=== PATIENT | male | born 1990 | race Caucasian/White ===

== ENCOUNTER 2022-12-24 17:59 | Emergency (ER) | payer SELFPAY ==
[2022-12-24 18:16] VITALS: BP 146/81; PULSE 93; RESP 18; TEMP 36.6; O2SAT 99; BMI 33.9
--- NOTE | 2022-12-24 23:22 | ED.GENADULT ---
HPI - General Adult General Chief complaint: Eye Problems Stated complaint: eye problem / work inj Time Seen by Provider: 12/24/22 23:04 Source: patient, family, RN notes reviewed and old records reviewed Mode of arrival: ambulatory Limitations: no limitations History of Present Illness HPI narrative: 32-year-old male presents for evaluation of right eye swelling. Patient denies any specific injury to his right eye. He reports that 2 days ago he noticed some swelling to his upper eyelid He states since then his eye has been itchy in the morning he has been scratching at He has mild discomfort to the area. He denies any blurry vision He has no other complaints or concerns at this time Related Data Previous Rx's Medication Instructions Recorded erythromycin 5 mg/gram (0.5 %) eye 0.5 inch ophthalmic (eye) TID 5 12/24/22 ointment days #3.5 grams Allergies Allergy/AdvReac Type Severity Reaction Status Date / Time No Known Allergies Allergy Verified 12/24/22 18:16 Review of Systems Constitutional: Constitutional: Denies chills and Denies fever(s) Eyes: Eyes: Denies blurry vision, Denies decreased night vision, Reports irritation, Reports itchy eyes, Denies loss of peripheral vision, Denies loss of vision, Reports eye pain, Denies spots in vision and Denies tunnel vision Neurologic: Denies loss of vision Allergic/Immunologic: Allergic/Immunologic: Reports itchy eyes PMFSH Social History Social History Smoked in Last 30 Days: Yes Use of substances other than those prescribed or required for medical reasons: No Advance Directives: No Advance Directives Information Provided: No Physical Exam ED Vital Signs: Vital Signs - 24 hr 12/24/22 18:16 Temperature 97.9 F Pulse Rate 93 Respiratory Rate 18 Blood Pressure 146/81 H Pulse Oximetry 99 Oxygen Delivery Method Room Air BMI result Body Mass Index 33.9 Const General: healthy appearing, comfortable, no acute distress, alert and awake Nutritional Appearance: well nourished Orientation/consciousness: patient oriented x3 HENMT Head: Yes normocephalic and Yes atraumatic Eyes Other: Patient has mild edema to the right upper eyelid, no significant erythema. Nontender to palpation. No fluctuance or drainage. There is very mild conjunctival injection ulcerations. Extraocular motions are intact in all cardinal directions without difficulty. Positive fluorescein uptake over the mid pupil of the right eye. No obvious foreign body on exam Neck Neck: Yes full ROM Resp Effort & Inspection: normal respiratory effort, able to speak in complete sentences and not labored Skin General skin exam: elasticity normal Neuro General: patient oriented x3 Cranial nerves: Yes Bilaterally intact EOM present Cognition (Neuro): normal cognition Extrem Other: Moving all extremities well without any obvious deformities Medications Administered Discontinued Medications Generic Name Dose Route Start Last Admin Trade Name Freq PRN Reason Stop Dose Admin Erythromycin 1 cm 12/24/22 23:22 12/24/22 23:27 Erythromycin Base 0.5% Oph Oin 1 Gm Tube EYE-RIGHT 12/24/22 23:23 1 cm ONCE ONE Administration Fluorescein Sodium 1 strip 12/24/22 22:45 12/24/22 23:27 Fluorescein Sodium Strip EYE-RIGHT 12/24/22 22:46 Not Given ONCE ONE Tetracaine HCl 1 drop 12/24/22 22:45 12/24/22 23:27 Tetracaine Hcl/Pf 0.5% Oph Sherita 4 Ml Drops EYE-RIGHT 12/24/22 22:46 Not Given ONCE ONE Medical Decision Making Medical Decision Making MDM Narrative: 32-year-old male presents for evaluation of a high swelling and mild pain. He appears to have a mild hordeolum/stye. He does have a small corneal abrasion exam. I have a low suspicion for foreign body or iritis. He has no blurry vision. Low suspicion for glaucoma as the patient has very mild pain and no excessive tearing. He likely cause a small corneal abrasion while itching his eyes due to the stye. Differential Diagnosis Differential Diagnoses: The differential diagnosis associated with the presentation includes Stye hordeolum corneal abrasion iritis foreign body Discharge Plan Discharge Clinical Impression: Corneal abrasion Patient Disposition: Home, Self-Care Instructions: Corneal Abrasion (ED) Additional Instructions: It appears that you had a simple stye to the right upper eyelid You likely caused a corneal abrasion by rubbing or scratching at your eye Use the erythromycin ointment 3 times daily for 5 days Apply warm compresses every 2 hours for 10 minutes to the right eye Follow-up with ophthalmology for symptoms do not improve. Prescriptions: New erythromycin 5 mg/gram (0.5 %) ointment 0.5 inch ophthalmic (eye) TID 5 Days Qty: 3.5 0RF Referrals: Esau Smith [Physician] - (right eye corneal abrasion) Interventions: ED Discharge Assessment Last Done: 12/24/22 23:32 Discharge Date/Time: 12/24/22 23:33
[2022-12-24] MEDS: Erythromycin Base 0.5% Oph Oin 1 GM TUBE 1 CM EYE-RIGHT (23:27)
== END 2022-12-24 23:33 | disposition home or self-care (01) ==
PROVIDERS: Emergency Provider Emergency Medicine
DX: S05.01XA Injury of conjunctiva and corneal abrasion without foreign body, right eye, initial encounter (principal); X58.XXXA Exposure to other specified factors, initial encounter; Y93.9 Activity, unspecified; Y92.9 Unspecified place or not applicable; Y99.9 Unspecified external cause status
CPT/HCPCS: 99283; 99284

== ENCOUNTER 2024-09-09 13:57 | Inpatient (IN) | payer MEDICAID, SELFPAY ==
--- NOTE | ~2024-09-09 | CT_ITS ---
CLINICAL HISTORY: upper abdominal pain CT abdomen and pelvis with contrast Comparison: None provided Findings: Lung bases clear. No acute bony abnormalities. Right lower quadrant inflammatory stranding. This involves multiple small bowel loops. This includes the adjacent terminal ileum. Small bowel wall thickening in right lower quadrant. Findings likely represent inflammatory bowel disease. The appendix is not definitively identified. Appendicitis would not be excludable. Findings involve the superior right bladder wall. 1.2 cm fluid collection along right superior bladder wall. Finding may represent a small abscess. No other fluid collection or free air is identified. Liver and spleen within normal limits. Pancreas and adrenal glands unremarkable. Gallbladder is within normal limits. No significant focal renal abnormalities. No renal stones or hydronephrosis. Abdominal aorta is normal in caliber. No free fluid or adenopathy in the pelvis. No diverticulitis. Impression: Right lower quadrant small bowel wall thickening with diffuse stranding Probable inflammatory bowel disease as above Probable 1.2 cm abscess along superior bladder wall Right superior bladder wall thickening indicates bladder involvement Note the appendix is not identified This document has been electronically signed by: Chacorta Damon MD on 09/09/2024 19:58:31
[2024-09-09 14:25] VITALS: BP 136/69; PULSE 65; RESP 16; TEMP 36.6; O2SAT 100; BMI 29.5
--- NOTE | 2024-09-09 14:26 | ED_ITS ---
HPI - General Adult General Chief complaint: Abdominal Pain Stated complaint: stomach pain, vomiting Time Seen by Provider: 09/09/24 17:04 Source: patient, RN notes reviewed and old records reviewed Mode of arrival: ambulatory Limitations: no limitations History of Present Illness ED Provider: Eladio JOHNSON narrative: 34-year-old male presents for evaluation of abdominal pain. Patient reported abdominal pain starting this morning. His pain is mostly left upper abdomen but radiates to the right upper abdomen. Symptoms started this afternoon while at work, not after eating. 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 He vomited on 1 occasion denies any black or bloody stool or diarrhea. Denies any previous abdominal surgeries. He rates his pain as 11/15 Related Data Previous Rx's ?Medication ?Instructions ?Recorded erythromycin 5 mg/gram (0.5 %) eye 0.5 inch ophthalmic (eye) TID 5 12/24/22 ointment days #3.5 grams Allergies Allergy/AdvReac Type Severity Reaction Status Date / Time No Known Allergies Allergy Verified 09/09/24 14:29 Review of Systems 2 Constitutional: Constitutional: Denies body ache(s), Denies chills and Denies fever(s) Eyes: Eyes: Denies blurry vision ENT: Denies vertigo and Denies dizziness Cardiovascular: Cardiovascular: Denies chest pain Gastrointestinal: Gastrointestinal: Reports abdominal pain, Denies melena, Denies hematochezia, Reports nausea and Reports vomiting Musculoskeletal: Musculoskeletal: Denies back pain Integumentary/Breasts: Skin/Breast: Denies rash Neurologic: Denies vertigo and Denies dizziness Psychiatric: Psychiatric: Denies anxiety [facility] Social History Social History Alcohol intake: current Alcohol intake frequency: holidays/special occasions only Smoked in Last 30 Days: No Use of substances other than those prescribed or required for medical reasons: No Advance Directives: No Advance Directives Information Provided: No Physical Exam ED Vital Signs: Vital Signs - 24 hr 09/09/24 14:25 09/09/24 16:42 09/09/24 20:59 Temperature 97.9 F 97.8 F Pulse Rate 65 70 78 Respiratory Rate 16 16 18 Blood Pressure 136/69 127/74 108/72 Pulse Oximetry 100 98 98 Oxygen Delivery Method Room Air Room Air Room Air BMI result Body Mass Index 29.5 Const General: healthy appearing, comfortable, no acute distress, alert and awake Nutritional Appearance: well nourished Orientation/consciousness: patient oriented x3 HENMT Head: Yes normocephalic and Yes atraumatic Eyes Eyelids: Yes eyelids normal Conjunctivae: conjunctivae normal Sclerae: sclerae normal Corneas: corneas normal Pupils: Equal, round and reactive pupils present EOM: EOMs intact bilaterally Neck Neck: Yes full ROM Resp Effort & Inspection: normal respiratory effort, able to speak in complete sentences and not labored GI Inspection: No distended Palpation (GI): Soft to palpation, not firm, Tenderness to palpation present (GI) in the epigastrum, in the RLQ, in the LUQ and in the RUQ; not in the LLQ and Alfaro's sign negative, no guarding and not rigid Skin General skin exam: elasticity normal Neuro General: patient oriented x3 Cranial nerves: Yes Equal, round and reactive pupils present and Yes Bilaterally intact EOM present Cognition (Neuro): normal cognition Extrem Other: Moving all extremities well without any obvious deformities Course Course Course Narrative: RME performed by Loida Witt PA-C. Patient is a 34 year old assigned male at presenting to the emergency department with abdominal pain, nausea, and vomiting. Detailed physical exam and review of systems are deferred to the pony edger. Labs ordered. Patient placed back in the waiting room pending room availability and results. Reevaluation(s) Reevaluation #1: Patient is signed out to overnight staff pending CT scan of the abdomen pelvis Time: 19:11 Reevaluation #2: Marin Reyes PA-C have accepted care of the patient and signed out pending CT scan and final disposition CT abdomen and pelvis:Findings: Lung bases clear. No acute bony abnormalities. Right lower quadrant inflammatory stranding. This involves multiple small bowel loops. This includes the adjacent terminal ileum. Small bowel wall thickening in right lower quadrant. Findings likely represent inflammatory bowel disease. The appendix is not definitively identified. Appendicitis would not be excludable. Findings involve the superior right bladder wall. 1.2 cm fluid collection along right superior bladder wall. Finding may represent a small abscess. No other fluid collection or free air is identified. Liver and spleen within normal limits. Pancreas and adrenal glands unremarkable. Gallbladder is within normal limits. No significant focal renal abnormalities. No renal stones or hydronephrosis. Abdominal aorta is normal in caliber. No free fluid or adenopathy in the pelvis. No diverticulitis. Impression: Right lower quadrant small bowel wall thickening with diffuse stranding Probable inflammatory bowel disease as above Probable 1.2 cm abscess along superior bladder wall Right superior bladder wall thickening indicates bladder involvement Note the appendix is not identified This document has been electronically signed by: Chacorta Damon MD on 09/09/2024 19:58:31 Consultations Consultation #1: per Dr. Brannon... Recommends admission to medicine and they will follow, I inquired about antibiotics, he states maybe...... I spoke with Dr. Forde the hospitalist, we will be starting vanco and Zosyn, I am also adding blood cultures and a lactic Time: 22:06 Medications Administered Discontinued Medications Generic Name Dose Route Start Last Admin Trade Name Freq PRN Reason Stop Dose Admin Sodium Chloride 1,000 mls @ 999 mls/hr 09/09/24 17:15 09/09/24 19:00 Ns IV 09/09/24 18:15 Infused .Q1H1M NISA Infusion Iohexol 100 ml 09/09/24 18:58 09/09/24 18:58 Iohexol 350 Mg/Ml 100 Ml Infus..Btl IV 09/09/24 18:59 85 ml ONCE ONE Administration Morphine Sulfate 4 mg 09/09/24 17:15 09/09/24 18:00 Morphine Sulfate 4 Mg/Ml Cartridge IVPUSH 09/09/24 17:16 4 mg ONCE ONE Administration Protocol Ondansetron HCl 4 mg 09/09/24 17:15 09/09/24 17:59 Ondansetron Hcl 4 Mg/2 Ml Vial IVPUSH 09/09/24 17:16 4 mg ONCE ONE Administration Medical Decision Making Medical Decision Making [facility] Narrative: 34-year-old male presents for evaluation abdominal pain with an episode of nausea and vomiting. No previous abdominal surgeries. His pain seems to be primarily in the left upper quadrant but he has tenderness to the entire abdomen including right upper quadrant, right lower quadrant and left lower quadrant. Clinically afternoon most likely diagnosis is a peptic ulcer disease or gastroenteritis. However given he has a leukocytosis with diffuse tenderness redressed CT scan to evaluate for other intra-abdominal or pelvic pathology. I have a lower suspicion for acute appendicitis given the area of discomfort. This is still possible on differential. The patient has a negative Alfaro's sign but biliary colic is also in the differential. I added a lipase to the patient's triage labs. He denies excessive alcohol use, denies excessive NSAID abuse. Differential Diagnosis Differential Diagnoses: The differential diagnosis associated with the presentation includes Abdominal pain Constipation Peptic ulcer disease Gastroenteritis Pancreatitis Acute appendicitis Lab Data MDM Lab Attestation statement: I reviewed the [place]. [place] [address]. Very mild anemia with a hemoglobin 13.7 hematocrit of 40.7. No previous for comparison. The patient does have a left shift which could be related to an infectious process versus demargination from the vomiting. No significant electrolyte abnormalities. LFTs within normal limits. Lipase pending 09/09/24 14:53 09/09/24 14:53 Labs: Lab Results 09/09/24 09/09/24 Range/Units 14:53 21:49 WBC 14.0 H (4.8-10.8) X10*3/uL RBC 4.77 (4.60-5.80) X10*6/uL Hgb 13.7 L (14.0-18.0) g/dl Hct 40.7 L (42.0-52.0) % MCV 85.3 (80.0-98.0) fL MCH 28.7 (27.0-33.0) pg MCHC 33.7 (31.0-36.0) g/dl RDW 13.0 (11.0-16.0) % Plt Count 230 (160-400) X10*3/uL MPV 10.5 (9.4-12.4) fL Immature Gran % (Auto) 0.4 (0.0-0.4) % Neut % (Auto) 83.9 H (45-73) % Lymph % (Auto) 8.5 L (20-40) % [place] % (Auto) 6.3 (2-11) % Eos % (Auto) 0.7 (0-4) % Baso % (Auto) 0.2 (0-2) % Lymph # (Auto) 1.2 (1.2-4.9) X10*3/uL [place] # (Auto) 0.9 (0.1-1.2) X10*3/uL Eos # (Auto) 0.1 (0.0-0.4) X10*3/uL Baso # (Auto) 0.0 (0.0-0.2) X10*3/uL Abs Immat Gran (auto) 0.05 H (0.00-0.03) X10*3/uL Absolute Neuts (auto) 11.8 H (2.0-8.3) x10*3/uL Absolute Nucleated RBC 0.000 (0.0-0.012) X10*3/uL Nucleated RBC % (auto) 0.0 (0.0-0.2) /100WBC Sodium 138 (135-145) mmol/L Potassium 4.1 (3.3-5.1) mmol/L Chloride 102 (96-108) mmol/L Carbon Dioxide 26 (22-29) mmol/L Anion Gap 14 (12-20) BUN 6 L (9-16) mg/dL Creatinine 0.87 (0.5-1.4) mg/dL Estim Creat Clear Calc 119.0 Estimated GFR > 60 Random Glucose 93 (60-115) mg/dL Calcium 9.0 (8.4-10.2) mg/dL Magnesium 1.8 (1.6-2.6) mg/dL Total Bilirubin 0.4 (0.0-1.0) mg/dL AST 37 (5-37) U/L ALT 26 (0-40) U/L Alkaline Phosphatase 73 (39-117) U/L Total Protein 7.8 (6.5-8.0) g/dL Albumin 4.6 (3.5-5.0) g/dL Lipase 18 (8-78) U/L Urine Color Yellow Urine Appearance Clear Urine pH 5.5 (5.0-9.0) Ur Specific [place] >= 1.030 H (1.005-1.025) Urine Protein Negative (Neg-Trace) mg/dL Urine Glucose (UA) Negative (Negative) mg/dL Urine Ketones 15 (Negative) mg/dL Urine Blood Negative (Negative) Urine Nitrite Negative (Negative) Ur Leukocyte Esterase Negative (Negative) Urine Opiates Screen POSITIVE H (Not Detect) Ur Buprenorphine Scrn Not Detected (Not Detect) ng/mL Ur Oxycodone Screen Not Detected (Not Detect) ng/mL Urine Methadone Screen Not Detected (Not Detect) ng/mL Urine Fentanyl Screen Not Detected (Not Detect) Ur Barbiturates Screen Not Detected (Not Detect) Ur Phencyclidine Scrn Not Detected (Not Detect) Ur Amphetamines Screen Not Detected (Not Detect) U Benzodiazepines Scrn Not Detected (Not Detect) Urine Cocaine Screen Not Detected (Not Detect) U Marijuana (THC) Screen Not Detected (Not Detect) Influenza Type A (PCR) NEGATIVE (Negative) Influenza Type B (PCR) NEGATIVE (Negative) RSV RNA Qual (PCR) NEGATIVE (Negative) SARS-CoV-2 RNA (RT-PCR) NEGATIVE (Negative) Discharge Plan Discharge Clinical Impression: Abdominal pain with vomiting Patient Disposition: Admitted As Inpatient Print Language: Swedish
[2024-09-09 14:57] LABS: MANUAL DIFF FLAG NO
[2024-09-09 15:02] LABS: Hematocrit 40.7 % (42.0-52.0); Hemoglobin 13.7 g/dl (14.0-18.0); Imm Gran Abs Auto 0.05 X10*3/uL (0.00-0.03); Imm Gran Pct Auto 0.4 % (0.0-0.4); Lymphocytes Absolute Auto 1.2 X10*3/uL (1.2-4.9); Mean Corpuscular HGB Conc 33.7 g/dl (31.0-36.0); Mean Corpuscular Hemoglobin 28.7 pg (27.0-33.0); Mean Corpuscular Volume 85.3 fL (80.0-98.0); NRBC Abs Auto 0.000 X10*3/uL (0.0-0.012); NRBC Pct Auto 0.0 /100WBC (0.0-0.2); Platelet Count 230 X10*3/uL (160-400); Red Blood Count 4.77 X10*6/uL (4.60-5.80); White Blood Count 14.0 X10*3/uL (4.8-10.8)
[2024-09-09 15:16] LABS: Alanine Aminotransferase 26 U/L (0-40); Albumin Level 4.6 g/dL (3.5-5.0); Alkaline Phosphatase 73 U/L (39-117); Anion Gap 14 (12-20); Aspartate Amino Transferase 37 U/L (5-37); Blood Urea Nitrogen 6 mg/dL (9-16); Calcium 9.0 mg/dL (8.4-10.2); Carbon Dioxide 26 mmol/L (22-29); Chloride 102 mmol/L (96-108); Creatinine Clr Calc Pharmacy 119.0; Estimated Glomerular Filt Rate > 60; Magnesium 1.8 mg/dL (1.6-2.6); Potassium 4.1 mmol/L (3.3-5.1); Sodium 138 mmol/L (135-145); Total Protein 7.8 g/dL (6.5-8.0)
[2024-09-09 15:36] LABS: Resp Syncy Virus RNA Qual PCR NEGATIVE (Negative); SARS COV2 PCR INHOUSE NEGATIVE (Negative)
[2024-09-09 16:42] VITALS: BP 127/74; PULSE 70; RESP 16; O2SAT 98
[2024-09-09 17:45] LABS: Lipase 18 U/L (8-78)
--- NOTE | 2024-09-09 17:47 | PC.NURSE ---
this nurse and another nurse attempted multiple times to obtain iv access which was unsuccessful, provider was notified and he is going to attempt an US guided IV.
--- NOTE | 2024-09-09 18:02 | PC.NURSE ---
pt a&o, iv inserted by provider us guided, pt c/o 10/ lower abd pain, ivf hung, pt medicated for pain per order, call lopez within reach, plan of care ongoing
[2024-09-09] MEDS: iohexoL 350 MG/ML 100 ML INFUS..BTL IV (18:58)
[2024-09-09 20:59] VITALS: BP 108/72; PULSE 78; RESP 18; TEMP 36.6; O2SAT 98
[2024-09-09 21:56] LABS: Appearance Urine Clear; Glucose Urine UA Negative (Negative); PH 5.5 (5.0-9.0); Specific Gravity - Urine >= 1.030 (1.005-1.025)
[2024-09-09 22:06] LABS: Cannabinoid Screen Urine Not Detected (Not Detect)
--- NOTE | 2024-09-09 22:32 | P.HPHOSP_ITS ---
History of Present Illness Date of Service: 09/09/24 Chief Complaint: Abdominal pain and vomiting This has a 34-year-old male with no pertinent past medical history and not on prescription medications who presents to the emergency department for evaluation of abdominal pain and vomiting. Patient states he had sudden onset of left- sided abdominal pain that started in the afternoon, which was sharp and radiated across his abdomen, constant and without any relieving factors. It lasted until patient came to the ER and received IV analgesics. Patient had associated 3 episodes of nonbloody emesis. No diarrhea. Patient states this happened about 3 weeks ago when he had similar pain but it self-resolved. He has not eaten anything since the pain. No history of intra-abdominal surgery. No fever, chest pain, palpitations, changes in urinary habits. In the emergency department, patient was found to have leukocytosis and imaging concerning for probable intra-abdominal abscess. General surgery was consulted who requested admission to medicine team. Review of Systems 2 Constitutional: Constitutional: Reports chills and Reports poor appetite Cardiovascular: Cardiovascular: Reports no additional cardiovascular complaints Gastrointestinal: Gastrointestinal: Reports abdominal pain, Reports nausea and Reports vomiting Genitourinary: Genitourinary: Reports no additional male genitourinary complaints PMFSH Pertinent family history: No family history of early CAD Social History Alcohol intake: current Alcohol intake frequency: holidays/special occasions only Smoked in Last 30 Days: No Use of substances other than those prescribed or required for medical reasons: No Advance Directives: No Advance Directives Information Provided: No Meds Allergies Allergy/AdvReac Type Severity Reaction Status Date / Time No Known Allergies Allergy Verified 09/09/24 14:29 Active Medications: Current Medications Piperacillin Sod/Tazobactam (Sod 3.375 gm/ Sodium Chloride) 50 mls @ 100 mls/hr IV ONCE ONE Stop: 09/09/24 22:51 Vancomycin HCl 1,500 mg/ (Sodium Chloride) 500 mls @ 333.333 mls/hr IV ONCE ONE Stop: 09/09/24 23:51 Physical Exam 2 Vital Signs and Narrative: Vital Signs: Last Vital Signs Temp 97.8 F 09/09/24 20:59 Pulse 78 09/09/24 20:59 Resp 18 09/09/24 20:59 BP 108/72 09/09/24 20:59 Pulse Ox 98 09/09/24 20:59 O2 Del Method Room Air 09/09/24 20:59 BMI result Body Mass Index 29.5 Const: Other: Young male lying in bed in no distress Neck supple, no JVD Regular rate and rhythm, S1-S2 heard Regular breath sounds bilaterally, no wheezing or crackles appreciated Abdomen with epigastric and left-sided tenderness, no rigidity Patient is awake, alert and oriented to self, place, time and person ; no focal motor deficit Psych: Normal mood No pedal edema Results Labs 09/09/24 14:53 09/09/24 14:53 Labs: Laboratory Results - last 24 hr 09/09/24 09/09/24 14:53 21:49 MCV 85.3 MCH 28.7 MCHC 33.7 RDW 13.0 Plt Count 230 MPV 10.5 Immature Gran % (Auto) 0.4 Neut % (Auto) 83.9 H Lymph % (Auto) 8.5 L [place] % (Auto) 6.3 Eos % (Auto) 0.7 Baso % (Auto) 0.2 Lymph # (Auto) 1.2 [place] # (Auto) 0.9 Eos # (Auto) 0.1 Baso # (Auto) 0.0 Abs Immat Gran (auto) 0.05 H Absolute Neuts (auto) 11.8 H Absolute Nucleated RBC 0.000 Nucleated RBC % (auto) 0.0 Anion Gap 14 Estim Creat Clear Calc 119.0 Estimated GFR > 60 Random Glucose 93 Calcium 9.0 Magnesium 1.8 Total Bilirubin 0.4 AST 37 ALT 26 Alkaline Phosphatase 73 Total Protein 7.8 Albumin 4.6 Lipase 18 Urine Color Yellow Urine Appearance Clear Urine pH 5.5 Ur Specific [place] >= 1.030 H Urine Protein Negative Urine Glucose (UA) Negative Urine Ketones 15 Urine Blood Negative Urine Nitrite Negative Ur Leukocyte Esterase Negative Urine Opiates Screen POSITIVE H Ur Buprenorphine Scrn Not Detected Ur Oxycodone Screen Not Detected Urine Methadone Screen Not Detected Urine Fentanyl Screen Not Detected Ur Barbiturates Screen Not Detected Ur Phencyclidine Scrn Not Detected Ur Amphetamines Screen Not Detected U Benzodiazepines Scrn Not Detected Urine Cocaine Screen Not Detected U Marijuana (THC) Screen Not Detected Influenza Type A (PCR) NEGATIVE Influenza Type B (PCR) NEGATIVE RSV RNA Qual (PCR) NEGATIVE SARS-CoV-2 RNA (RT-PCR) NEGATIVE Assessment and Plan (1) Abdominal pain with vomiting: Status: Acute Plan This has a 34-year-old male with no pertinent past medical history and not on prescription medications who presents to the emergency department for evaluation of abdominal pain and vomiting. #. Intractable abdominal pain: Will admit patient with IV opioids p.r.n. for analgesia. Imaging with probable inflammatory bowel disease +/- 1.2cm abscess along superior bladder wall. Empiric broad-spectrum IV antibiotics. General surgery was consulted in the ER for possible intra-abdominal abscess who recommended admission. GI eval pending. DVT prophylaxis: SCDs Full code Admit as inpatient and will require two night minimum hospital stay for intractable abdominal pain (as above), which is not possible in a lesser acute setting. Specialist consult pending Quality Stroke Does the patient have a stroke diagnosis?: No VTE Prior VTE?: No VTE Risk Level:: Medical - moderate - high VTE Device Contraindication: N/A - Device Ordered VTE Drug Contraindication: Treatment Not Indicated
--- NOTE | 2024-09-09 22:42 | MHC.EDTECH ---
Belongings list complete for admission. Mother did take pt's cellphone home with her. Pt agreeable and aware. RN made aware.
--- NOTE | 2024-09-09 23:46 | PC.NURSE ---
assumed care of pt, pt medicated per MAR.
[2024-09-10 04:23] VITALS: BP 97/50; PULSE 58; RESP 18; TEMP 36.4; O2SAT 98
[2024-09-10 05:29] LABS: MANUAL DIFF FLAG NO
[2024-09-10 05:33] LABS: Hematocrit 38.0 % (42.0-52.0); Hemoglobin 12.7 g/dl (14.0-18.0); Imm Gran Abs Auto 0.03 X10*3/uL (0.00-0.03); Imm Gran Pct Auto 0.3 % (0.0-0.4); Lymphocytes Absolute Auto 1.4 X10*3/uL (1.2-4.9); Mean Corpuscular HGB Conc 33.4 g/dl (31.0-36.0); Mean Corpuscular Hemoglobin 28.5 pg (27.0-33.0); Mean Corpuscular Volume 85.4 fL (80.0-98.0); NRBC Abs Auto 0.000 X10*3/uL (0.0-0.012); NRBC Pct Auto 0.0 /100WBC (0.0-0.2); Platelet Count 183 X10*3/uL (160-400); Red Blood Count 4.45 X10*6/uL (4.60-5.80); White Blood Count 8.7 X10*3/uL (4.8-10.8)
[2024-09-10 05:51] LABS: Anion Gap 11 (12-20); Blood Urea Nitrogen 4 mg/dL (9-16); Calcium 7.8 mg/dL (8.4-10.2); Carbon Dioxide 24 mmol/L (22-29); Chloride 107 mmol/L (96-108); Creatinine Clr Calc Pharmacy 139.9; Estimated Glomerular Filt Rate > 60; Potassium 3.8 mmol/L (3.3-5.1); Sodium 138 mmol/L (135-145)
--- NOTE | 2024-09-10 07:43 | PM.CNGS ---
History of Present Illness Consult details Consult date: 09/10/24 <LILLIANA Dowd Last Filed: 09/10/24 07:57> Reason for consult: abdominal pain <LILLIANA Dowd Last Filed: 09/10/24 07:57> Requesting physician: Hermelindo Forde <LILLIANA Dowd Last Filed: 09/10/24 07:57> Narrative: 34 year old male with no known PMH who presented to the ED for evaluation of abdominal pain. The pain began yesterday afternoon in the LLQ. It was sharp and severe in nature and associated with vomiting. He reports he had the same pain a few weeks prior that resolved on its own. This current episode was however more severe. Due to the severity of the pain, he presented to the ED for evaluation. Wok up included CBC, BMP, LFTs which was significant for a leukocytosis of 14. CT scan abd pelvis was obtained which demonstrated wall thickening of multiple loops of small bowel and surrounding inflammatory stranding in the RLQ with question of 1.2 cm fluid collection along right superior bladder wall. This morning he feels improved with less abdominal pain. He has been passing flatus and his last BM was yesterday and was normal. He denies fevers, chills, diarrhea, hematuria, pneumoturia, dysruia. He denies FH of IBD. He has never had a colonoscopy before. He smokes pipe tobacco daily. <LILLIANA Dowd Last Filed: 09/10/24 07:57> Review of Systems Constitutional: Constitutional: Denies chills, Denies fever(s), Denies malaise and Denies weight loss <LILLIANA Dowd Last Filed: 09/10/24 07:57> ENT: Denies dizziness <LILLIANA Dowd Last Filed: 09/10/24 07:57> Cardiovascular: Cardiovascular: Denies chest pain and Denies dyspnea <LILLIANA Dowd Last Filed: 09/10/24 07:57> Respiratory: Respiratory: Denies dyspnea <LILLIANA Dowd Last Filed: 09/10/24 07:57> Gastrointestinal: Gastrointestinal: Reports as per HPI, Denies melena and Denies hematochezia <LILLIANA Dowd Last Filed: 09/10/24 07:57> Genitourinary: Genitourinary: Reports as per HPI <LILLIANA Dowd Last Filed: 09/10/24 07:57> Integumentary/Breasts: Skin/Breast: Denies rash and Denies jaundice <LILLIANA Dowd Last Filed: 09/10/24 07:57> Neurologic: Denies dizziness <LILLIANA Dowd Last Filed: 09/10/24 07:57> [facility] Social History Social History: Social History Alcohol intake: current Alcohol intake frequency: holidays/special occasions only Smoked in Last 30 Days: No Use of substances other than those prescribed or required for medical reasons: No Advance Directives: No Advance Directives Information Provided: No <LILLIANA Dowd Last Filed: 09/10/24 07:57> Meds Allergies/Adverse reactions: Allergies Allergy/AdvReac Type Severity Reaction Status Date / Time No Known Allergies Allergy Verified 09/09/24 14:29 <LILLIANA Dowd Last Filed: 09/10/24 07:57> Active Medications: Current Medications Acetaminophen (Acetaminophen 325 Mg Tablet) 650 mg PO Q6H PRN PRN Reason: Pain, Mild 1-3,fever,headache Calcium Carbonate (Calcium Carbonate 750 Mg Tab.Chew) 750 mg PO Q4H PRN PRN Reason: Heartburn Vancomycin HCl 1,250 mg/ (Sodium Chloride) 250 mls @ 166.667 mls/hr IV Q12H [facility] Magnesium Hydroxide (Milk Of Magnesia 30 Ml Oral.Susp) 30 ml PO DAILY PRN PRN Reason: Constipation Melatonin (Melatonin 3 Mg Tablet) 6 mg PO BEDTIME PRN PRN Reason: Insomnia Morphine Sulfate (Morphine Sulfate 4 Mg/Ml Cartridge) 4 mg IVPUSH Q4H PRN; Protocol PRN Reason: Pain, Severe (Pain Scale 7-10) Ondansetron HCl (Ondansetron Hcl 4 Mg/2 Ml Vial) 4 mg IVPUSH Q8H PRN PRN Reason: Nausea and Vomiting Pharmacy Consult (Consult Rx Vancomycin Dosing) 1 each MISCELLANE DAILY PRN PRN Reason: Consult order Sodium Chloride (0.9 % Sodium Chloride Flush 3 Ml Syringe) 3 ml IVFLUSH QSHIFT [facility] Last Admin: 09/10/24 00:03 Dose: Not Given <LILLIANA Dowd Last Filed: 09/10/24 07:57> Home medications: Home Medications ?Medication ?Instructions ?Recorded ?Confirmed ?Last Taken ?Type acetaminophen 500 mg tablet 1,000 mg PO Q6H PRN Pain 09/10/24 09/10/24 Unknown History ibuprofen 200 mg tablet 400 mg PO Q8H PRN Pain 09/10/24 09/10/24 Unknown History melatonin 10 mg tablet 10 mg PO BEDTIME PRN Sleep 09/10/24 09/10/24 Unknown History <LILLIANA Dowd Last Filed: 09/10/24 07:57> Physical Exam Vital Signs: Vital Signs: Last Vital Signs Temp 97.5 F 09/10/24 04:23 Pulse 58 09/10/24 04:23 Resp 18 09/10/24 04:23 BP 97/50 L 09/10/24 04:23 Pulse Ox 98 09/10/24 04:23 O2 Del Method Room Air 09/09/24 20:59 BMI result Body Mass Index 29.5 <LILLIANA Dowd Last Filed: 09/10/24 07:57> Const: General: comfortable, no acute distress and alert <LILLIANA Dowd Last Filed: 09/10/24 07:57> Orientation/consciousness: patient oriented x3 <LILLIANA Dowd Last Filed: 09/10/24 07:57> Resp: Effort & Inspection: normal respiratory effort <LILLIANA Dowd Last Filed: 09/10/24 07:57> GI: Inspection: Yes normal to inspection, No distended and No scar <LILLIANA Dowd Last Filed: 09/10/24 07:57> Palpation (GI): Soft to palpation, Tenderness to palpation present (GI) (mild lower abdominal tenderness more increased in LLQ, suprapubic), no guarding and not rigid <LILLIANA Dowd Last Filed: 09/10/24 07:57> Percussion: Yes normal to percussion <LILLIANA Dowd Last Filed: 09/10/24 07:57> Skin: General skin exam: no rashes or lesions noted <LILLIANA Dowd Last Filed: 09/10/24 07:57> Neuro: General: patient oriented x3 <LILLIANA Dowd Last Filed: 09/10/24 07:57> Results Labs Result diagrams: 09/10/24 05:14 09/10/24 05:14 <LILLIANA Dowd Last Filed: 09/10/24 07:57> Labs: Abnormal lab results 09/09/24 09/09/24 09/10/24 Range/Units 14:53 21:49 05:14 WBC 14.0 H (4.8-10.8) X10*3/uL RBC 4.45 L (4.60-5.80) X10*6/uL Hgb 13.7 L 12.7 L (14.0-18.0) g/dl Hct 40.7 L 38.0 L (42.0-52.0) % Neut % (Auto) 83.9 H (45-73) % Lymph % (Auto) 8.5 L 16.2 L (20-40) % Abs Immat Gran (auto) 0.05 H (0.00-0.03) X10*3/uL Absolute Neuts (auto) 11.8 H (2.0-8.3) x10*3/uL Anion Gap 11 L (12-20) BUN 6 L 4 L (9-16) mg/dL Calcium 7.8 L D (8.4-10.2) mg/dL Ur Specific [place] >= 1.030 H (1.005-1.025) Urine Opiates Screen POSITIVE H (Not Detect) Short CBC 09/09/24 09/10/24 Range/Units 14:53 05:14 WBC 14.0 H 8.7 (4.8-10.8) X10*3/uL Hgb 13.7 L 12.7 L (14.0-18.0) g/dl Hct 40.7 L 38.0 L (42.0-52.0) % Plt Count 230 183 (160-400) X10*3/uL BMP 09/09/24 09/10/24 14:53 05:14 Sodium 138 138 Potassium 4.1 3.8 Chloride 102 107 Carbon Dioxide 26 24 BUN 6 L 4 L Creatinine 0.87 0.74 Calcium 9.0 7.8 L D Liver Function 09/09/24 Range/Units 14:53 Total Bilirubin 0.4 (0.0-1.0) mg/dL AST 37 (5-37) U/L ALT 26 (0-40) U/L Alkaline Phosphatase 73 (39-117) U/L Albumin 4.6 (3.5-5.0) g/dL Urine 09/09/24 Range/Units 21:49 Urine Color Yellow Urine Appearance Clear Urine pH 5.5 (5.0-9.0) Ur Specific [place] >= 1.030 H (1.005-1.025) Urine Protein Negative (Neg-Trace) mg/dL Urine Glucose (UA) Negative (Negative) mg/dL All other labs normal. <Zelda Rea PA-C - Last Filed: 09/10/24 07:57> Imaging Abdomen CT scan report/results: report reviewed and image reviewed <Zelda Rea PA-C - Last Filed: 09/10/24 07:57> Assessment and Plan (1) Enteritis: Status: Acute <Zelda Rea PA-C - Last Filed: 09/10/24 07:57> 34-year-old male with the abdominal pain x1 day He states that he had a similar episode about 2 weeks ago Describes the episodes of vomiting yesterday Currently denies any significant pain No further vomiting since last night Abdomen is soft and benign CAT scan reviewed - note of significant inflammatory stranding in the right lower quadrant involving the terminal ileum with thickening Likely IBD No drainable abscess He looks well overall GI consult IV antibiotics for now No surgical intervention indicated currently We will follow Seen and examined independently <Maxwell Brannon MD - Last Filed: 09/10/24 11:39> 34 year old healthy male who presented to the ED for evaluation of abdominal pain and vomiting with leukocytosis and CT scan showing multiple thickened small bowel loops with surrounding fat stranding consistent with enteritis, possible Crohns. His WBC count has normalized this morning. His abdomen is overall benign with mild lower abd tenderness, no peritoneal signs. Question of an abscess at the dome of the bladder however this is very small and would likely improve with abx. Recommend cont IV abx, poss steroids and GI consult for further treatment of the enteritis. Will continue to follow but currently no acute surgical intervention warranted. <Zelda Rea PA-C - Last Filed: 09/10/24 07:57> Procedures Date of Service Date of Service: 09/10/24 <Zelda Rea PA-C - Last Filed: 09/10/24 07:57> 09/10/24 <Maxwell Brannon MD - Last Filed: 09/10/24 11:39>
--- NOTE | 2024-09-10 07:57 | PHA.MEDREC ---
Addendum entered by Ellie Costa RPh 09/10/24 08:12: Reviewed by [facility] Original Note: Pharmacy Consult ? Medication Reconciliation Pharmacy has completed the medication reconciliation. Per pt he is only taking: Melatonin as needed for sleep and he alternates Ibuprofen and Tylenol as needed for pain.
[2024-09-10 07:59] VITALS: BP 103/60; PULSE 65; RESP 16; TEMP 36.3; O2SAT 98
--- NOTE | 2024-09-10 07:59 | PC.NURSE ---
PT A&O X4 VSS NAD denies pain, john Clr liqs PO, No complaints.
[2024-09-10] MEDS: Ampicillin Sodium/Sulbactam Na 1.5 GM in 0.9 % Sodium Chloride 100 ML IV ×3 (08:35→19:41)
[2024-09-10] MEDS: 0.9 % Sodium Chloride Flush 3 ML SYRINGE IVFLUSH ×3 (08:37→19:41)
--- NOTE | 2024-09-10 11:36 | P.PNIM_ITS ---
Subjective Subjective Date of Service: 09/10/24 Interval History: abd pain Physical Exam 2 Exam: Exam: General: AO X 3, no acute distress Resp: CTA bilateral, no accessory muscles used CVS: S1,S2,RRR GI: soft, mild tender, non distended Neuro: motor grossly intact, alert Psych: appropriate affect, appropriate insight Vital Signs: Vital Signs: Last Vital Signs Temp 97.3 F 09/10/24 07:59 Pulse 65 09/10/24 07:59 Resp 16 09/10/24 07:59 BP 103/60 09/10/24 07:59 Pulse Ox 98 09/10/24 07:59 O2 Del Method Room Air 09/10/24 07:59 BMI result Body Mass Index 29.5 Objective Data Active Medications Acetaminophen (Acetaminophen 325 Mg Tablet) 650 mg PO Q6H PRN PRN Reason: Pain, Mild 1-3,fever,headache Calcium Carbonate (Calcium Carbonate 750 Mg Tab.Chew) 750 mg PO Q4H PRN PRN Reason: Heartburn Ampicillin Sodium/Sulbactam (Sodium 1.5 gm/ Sodium Chloride) 100 mls @ 200 mls/hr IV Q6H [facility] Last Infusion: 09/10/24 09:10 Dose: Infused Documented By: MICHAEL Magnesium Hydroxide (Milk Of Magnesia 30 Ml Oral.Susp) 30 ml PO DAILY PRN PRN Reason: Constipation Melatonin (Melatonin 3 Mg Tablet) 6 mg PO BEDTIME PRN PRN Reason: Insomnia Morphine Sulfate (Morphine Sulfate 4 Mg/Ml Cartridge) 4 mg IVPUSH Q4H PRN; Protocol PRN Reason: Pain, Severe (Pain Scale 7-10) Ondansetron HCl (Ondansetron Hcl 4 Mg/2 Ml Vial) 4 mg IVPUSH Q8H PRN PRN Reason: Nausea and Vomiting Sodium Chloride (0.9 % Sodium Chloride Flush 3 Ml Syringe) 3 ml IVFLUSH QSHIFT [facility] Last Admin: 09/10/24 08:37 Dose: 3 ml Documented By: MICHAEL Labs 09/10/24 05:14 09/10/24 05:14 Labs: Laboratory Results - last 24 hr 09/09/24 09/09/24 09/09/24 14:53 21:49 22:38 MCV 85.3 MCH 28.7 MCHC 33.7 RDW 13.0 Plt Count 230 MPV 10.5 Immature Gran % (Auto) 0.4 Neut % (Auto) 83.9 H Lymph % (Auto) 8.5 L [place] % (Auto) 6.3 Eos % (Auto) 0.7 Baso % (Auto) 0.2 Lymph # (Auto) 1.2 [place] # (Auto) 0.9 Eos # (Auto) 0.1 Baso # (Auto) 0.0 Abs Immat Gran (auto) 0.05 H Absolute Neuts (auto) 11.8 H Absolute Nucleated RBC 0.000 Nucleated RBC % (auto) 0.0 Anion Gap 14 Estim Creat Clear Calc 119.0 Estimated GFR > 60 Random Glucose 93 Lactic Acid 0.9 Calcium 9.0 Magnesium 1.8 Total Bilirubin 0.4 AST 37 ALT 26 Alkaline Phosphatase 73 Total Protein 7.8 Albumin 4.6 Lipase 18 Urine Color Yellow Urine Appearance Clear Urine pH 5.5 Ur Specific [place] >= 1.030 H Urine Protein Negative Urine Glucose (UA) Negative Urine Ketones 15 Urine Blood Negative Urine Nitrite Negative Ur Leukocyte Esterase Negative Urine Opiates Screen POSITIVE H Ur Buprenorphine Scrn Not Detected Ur Oxycodone Screen Not Detected Urine Methadone Screen Not Detected Urine Fentanyl Screen Not Detected Ur Barbiturates Screen Not Detected Ur Phencyclidine Scrn Not Detected Ur Amphetamines Screen Not Detected U Benzodiazepines Scrn Not Detected Urine Cocaine Screen Not Detected U Marijuana (THC) Screen Not Detected Influenza Type A (PCR) NEGATIVE Influenza Type B (PCR) NEGATIVE RSV RNA Qual (PCR) NEGATIVE SARS-CoV-2 RNA (RT-PCR) NEGATIVE 09/10/24 05:14 MCV 85.4 MCH 28.5 MCHC 33.4 RDW 13.0 Plt Count 183 MPV 11.1 Immature Gran % (Auto) 0.3 Neut % (Auto) 71.0 Lymph % (Auto) 16.2 L [place] % (Auto) 9.7 Eos % (Auto) 2.5 Baso % (Auto) 0.3 Lymph # (Auto) 1.4 [place] # (Auto) 0.8 Eos # (Auto) 0.2 Baso # (Auto) 0.0 Abs Immat Gran (auto) 0.03 Absolute Neuts (auto) 6.2 Absolute Nucleated RBC 0.000 Nucleated RBC % (auto) 0.0 Anion Gap 11 L Estim Creat Clear Calc 139.9 Estimated GFR > 60 Random Glucose 83 Lactic Acid Calcium 7.8 L D Magnesium Total Bilirubin AST ALT Alkaline Phosphatase Total Protein Albumin Lipase Urine Color Urine Appearance Urine pH Ur Specific [place] Urine Protein Urine Glucose (UA) Urine Ketones Urine Blood Urine Nitrite Ur Leukocyte Esterase Urine Opiates Screen Ur Buprenorphine Scrn Ur Oxycodone Screen Urine Methadone Screen Urine Fentanyl Screen Ur Barbiturates Screen Ur Phencyclidine Scrn Ur Amphetamines Screen U Benzodiazepines Scrn Urine Cocaine Screen U Marijuana (THC) Screen Influenza Type A (PCR) Influenza Type B (PCR) RSV RNA Qual (PCR) SARS-CoV-2 RNA (RT-PCR) Assessment and Plan (1) Enteritis: Status: Acute Plan 34M no significant PMH, presented with abdominal pain found to have enteritis with suspicion of IBD as well as small intra-abdominal abscess Intractable abdominal pain Due to suspected new onset IBD complicated by acute enteritis and abscess General surgery appreciated no surgical intervention for now, continue IV Unasyn Follow up cultures, follow up gastroenterology DVT prophylaxis-mechanical due to possible scope or intervention Full code reason for continued hospitalization:iv abx Quality Stroke Does the patient have a stroke diagnosis?: No VTE Prior VTE?: No VTE Risk Level:: Medical - moderate - high VTE Device Contraindication: N/A - Device Ordered VTE Drug Contraindication: Treatment Not Indicated
--- NOTE | 2024-09-10 12:19 | MHC.CM.PN ---
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
[2024-09-10 15:43] VITALS: BP 120/58; PULSE 84; RESP 18; TEMP 36.4; O2SAT 98
--- NOTE | 2024-09-10 19:16 | P.EN_ITS ---
Event Note Date of Service: 09/10/24 Event Note: GI Consult-Full note dictated-History from patient, mother, and EMR Imp: Distal small bowel enteritis/inflammation raising a suspicion of Crohn's based on the appearance of the CT. However, other than 2 days of a GI bug last week with N/V/Diarrhea and an episode of abdominal pain 3 weeks ago that resolved within a hour, he has no previous GI issues. He is feeling 100 % better since admission with IV antibotics and no steroids which goes against Crohn's. His abdominal exam is currently completely benign. The possibilities include some type of bacterial infection, i.e.:Yersinia, Crohn's disease, or even lymphoma Rec: Continue IV antibiotics, advance diet as tolerated. Check stool specimens and other labs in AM. Check a [email or web address] lab for Crohn's. Repeat CT if things worsen. If things continue to improve I would recommend a F/U CT in about a month and then eventual colonoscopy. This may need to be done sooner depending on his clinical course. D/W patient and his mother in detail. Thanks Time Spent With Patient Time: Total time managing care of this patient today ____ minutes.
[2024-09-10 23:36] VITALS: BP 109/61; PULSE 72; RESP 16; TEMP 36; O2SAT 96
[2024-09-11] MEDS: Ampicillin Sodium/Sulbactam Na 1.5 GM in 0.9 % Sodium Chloride 100 ML IV ×4 (01:20→19:56)
--- NOTE | 2024-09-11 04:50 | CONS_ITS ---
DATE OF SERVICE: 09/10/2024 REASON FOR CONSULTATION: Abdominal pain and abnormal CT scan of GI tract. HISTORY OF PRESENT ILLNESS: This has been obtained from the patient, his mother, and the medical record. Patient is a 34-year-old generally quite healthy male who was in his usual state of health up until yesterday when he developed the acute onset of vomiting followed by lower abdominal pain. He does describe a similar episode of just lower abdominal pain about 3 weeks ago that only lasted for an hour or so and then spontaneously resolved. During that episode, he did not have any vomiting or diarrhea. During that episode 3 weeks ago, was mainly pain localized to the left lower quadrant with radiation across the lower abdomen to the right lower quadrant. After that episode about 3 weeks ago, he had no further episodes of pain. About a week ago, he does describe a 48 hour episode of some vomiting, diarrhea, and fever, although he did not actually take his temperature. During that time, he did not have any associated abdominal pain. There was no hematemesis, coffee-grounds emesis, melena, nor hematochezia. That did resolve spontaneously and he had been well again up until just yesterday when he developed the acute onset of vomiting and then the lower abdominal pain, which was quite severe and persisted, which prompted his ER visit. In the ER, he was found to have abdominal tenderness and the abnormal CT scan with inflammation primarily in the area of the right lower quadrant with some inflammatory stranding of multiple small bowel loops including the terminal ileum. There was a question of a 1.2 cm abscess along the right side of the bladder wall, but ultimately this was not definitive and was not needed to be drained. The remainder of the GI tract is described as normal. He was admitted to the hospital and treated with IV antibiotics. Overnight and into today, he reports that he is feeling tremendously better and really has no further pain. He has been tolerating liquids. He has not had any bowel movements since yesterday. There has been no vomiting today. He has been afebrile. Prior to the onset of the past 3 weeks of the pain, vomiting, diarrhea last week, and the episode yesterday, he denies any associated travel, antibiotic use, ill contacts, nor ingestion of any suspicious food. He does not chew on any sharp objects such as tooth picks. There was no known family history of inflammatory bowel disease or colorectal cancer. He uses occasional ibuprofen but very irregularly and not very frequently. He does smoke a pipe but does not use any significant amounts of alcohol. MEDICATIONS: At home, occasional Tylenol and occasional ibuprofen. PAST MEDICAL HISTORY: He is generally quite healthy and denies any chronic medical problems such as diabetes, asthma, or heart disease. PAST SURGICAL HISTORY: He denies any surgeries. Of note, he has a previous history of obesity and was once over 400 pounds, however, over the last 5 or 6 years, he describes weight loss by simply diet and his weight currently has stabilized. He has lost over 200 pounds in total. 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 He is single and lives with his parents. He smokes a pipe. He does not use any significant amounts of alcohol. FAMILY HISTORY: Noncontributory. Specifically, there is no history of inflammatory bowel disease or colorectal cancer in the family. REVIEW OF SYSTEMS: CONSTITUTIONAL: Prior to yesterday, he had been feeling well with good energy, good appetite. SKIN: No rash. No pruritus. HEENT: He denies any eye problems or eye pain. CARDIAC: No chest pain. PULMONARY: No coughing or hemoptysis. GI: As above. He also denies any history of heartburn, dysphagia, early satiety, signs of jaundice, or other abdominal pains besides the one that brought him to the hospital. URINARY: He denies any dysuria, hematuria, nor pneumaturia. NEUROLOGIC: No headache or seizures. PHYSICAL EXAMINATION: GENERAL: The patient is a pleasant, alert, comfortable appearing male. He has been afebrile. SKIN: Warm and dry. HEENT: Anicteric sclerae. Moist mucous membranes. NECK: Supple. CHEST: Clear. CARDIAC: Normal S1, S2. ABDOMEN: Soft. Normal bowel sounds. Nondistended and nontender. There is no mass, rebound, or guarding at the present time. EXTREMITIES: Without edema. Laboratories and CT scan as above with changes as described above with inflammatory changes of the small bowel in the distal region of the ileum. Initial white cell count was 14,000, today was 8.7; hemoglobin 13.7 yesterday and 12.7 today. MCV 85, platelets 183,000. Normal electrolytes. BUN 4, creatinine 0.7. Normal liver profile and lipase. IMPRESSION: Given the patient's acute presentation including the 48-hour episode last week of what sounds like some type of gastroenteritis, this does raise suspicion of a possible bacterial infection as the cause of his symptoms. Overall, that would be somewhat atypical given the 1 week time span between the acute episodes last week and this current presentation. Something such as yersinia could present with distal small-bowel disease. Crohn's disease is certainly another possibility, although again the acute onset is rather unusual but can be seen. Typically one sees more of an indolent course with more diarrhea, chronic low-grade pain and other constitutional symptoms. At this point, he has dramatically improved in a very short time on just some IV antibiotics. He has not required steroids and that would also tend to go against Crohn's disease as the cause of the presentation. At this point, I would hold off on treating this as Crohn's disease since we do not have any definitive diagnosis. If indeed this is a bacterial infection, then the steroids could make that worse. I would continue the IV antibiotics. I would continue close observation. I do not think a repeat CT scan is needed at the present time, but certainly if he has recurrent abdominal pain or any other worsening signs then he may need a repeat CT to rule out any worsening inflammation and/or abscess formation. I have ordered some stool specimens to be sent off, as well as some other laboratories including iron studies, B12, and folate level. I have sent off a [facility] to see if that could distinguish between inflammatory bowel disease or something else such as an infectious process. I did review with the patient and his mother in detail that if things continue to improve during the hospitalization he could be sent home on some oral antibiotics. If things remain stable, I would recommend a CT scan in the next month or two for followup to see if this area normalizes. I advised that I would recommend a followup colonoscopy electively for further evaluation of this as well. However, if things were to worsen again once the antibiotics are finished, then we may need to proceed sooner with further workup to try to definitively assess for Crohn's disease that might obviously require other treatment such as steroids or a biologic agent. I would advance his diet over the next 48 to 72 hours if stable. Again, I have ordered stool specimens to try to possibly isolate a bacterial infection as the cause of this. I would not recommend a colonoscopy urgently in light of the fact that he had this inflammation in the small bowel with a questionable abscess that could imply some obvious weakening of the small bowel, which could predispose to perforation if colonoscopy was attempted. I did advise the patient to avoid all NSAIDs at home as that can exacerbate GI tract inflammation as well. This has all been discussed with the patient and his mother in detail. They are comfortable with the plan. MD EMI Gee/PAT / [id number] MTDD
[2024-09-11 07:02] VITALS: BP 119/71; PULSE 71; RESP 16; TEMP 36.2; O2SAT 95
[2024-09-11] MEDS: 0.9 % Sodium Chloride Flush 3 ML SYRINGE IVFLUSH ×3 (07:17→19:57)
[2024-09-11 07:27] LABS: Hematocrit 36.9 % (42.0-52.0); Hemoglobin 12.0 g/dl (14.0-18.0); Mean Corpuscular HGB Conc 32.5 g/dl (31.0-36.0); Mean Corpuscular Hemoglobin 28.2 pg (27.0-33.0); Mean Corpuscular Volume 86.6 fL (80.0-98.0); NRBC Abs Auto 0.000 X10*3/uL (0.0-0.012); NRBC Pct Auto 0.0 /100WBC (0.0-0.2); Platelet Count 173 X10*3/uL (160-400); Red Blood Count 4.26 X10*6/uL (4.60-5.80); White Blood Count 7.7 X10*3/uL (4.8-10.8)
--- NOTE | 2024-09-11 07:47 | PM.PNGS ---
Subjective Subjective Date of Service: 09/11/24 Interval history: Denies abdominal pain No nausea or vomiting Passing flatus He says he feels well overall Physical Exam Vital Signs: Vital Signs: Last Vital Signs Temp 97.1 F 09/11/24 07:02 Pulse 71 09/11/24 07:02 Resp 16 09/11/24 07:02 BP 119/71 09/11/24 07:02 Pulse Ox 95 09/11/24 07:02 O2 Del Method Room Air 09/11/24 07:02 BMI result Body Mass Index 29.5 Const: General: comfortable and no acute distress Resp: Effort & Inspection: normal respiratory effort Cardio: Palpation: normal PMI GI: Palpation (GI): Soft to palpation, not firm, nontender and no guarding Objective Data Active Medications Acetaminophen (Acetaminophen 325 Mg Tablet) 650 mg PO Q6H PRN PRN Reason: Pain, Mild 1-3,fever,headache Calcium Carbonate (Calcium Carbonate 750 Mg Tab.Chew) 750 mg PO Q4H PRN PRN Reason: Heartburn Ampicillin Sodium/Sulbactam (Sodium 1.5 gm/ Sodium Chloride) 100 mls @ 200 mls/hr IV Q6H [facility] Last Admin: 09/11/24 07:19 Dose: 200 mls/hr Documented By: PARMINDER Magnesium Hydroxide (Milk Of Magnesia 30 Ml Oral.Susp) 30 ml PO DAILY PRN PRN Reason: Constipation Melatonin (Melatonin 3 Mg Tablet) 6 mg PO BEDTIME PRN PRN Reason: Insomnia Morphine Sulfate (Morphine Sulfate 4 Mg/Ml Cartridge) 4 mg IVPUSH Q4H PRN; Protocol PRN Reason: Pain, Severe (Pain Scale 7-10) Ondansetron HCl (Ondansetron Hcl 4 Mg/2 Ml Vial) 4 mg IVPUSH Q8H PRN PRN Reason: Nausea and Vomiting Sodium Chloride (0.9 % Sodium Chloride Flush 3 Ml Syringe) 3 ml IVFLUSH QSHIFT [facility] Last Admin: 09/11/24 07:17 Dose: 3 ml Documented By: PARMINDER Labs 09/11/24 06:57 09/10/24 05:14 Labs: Laboratory Results - last 24 hr 09/11/24 06:57 MCV 86.6 MCH 28.2 MCHC 32.5 RDW 13.3 Plt Count 173 MPV 11.2 Absolute Nucleated RBC 0.000 Nucleated RBC % (auto) 0.0 Microbiology Microbiology Results: Microbiology 09/09/24 22:38 Blood Culture - Preliminary Blood - Venous No growth after 24 hours. 09/09/24 22:38 Blood Culture - Preliminary Blood - Venous No growth after 24 hours. Procedures Date of Service Date of Service: 09/11/24 Progress Note: A&P Assessment and plan (1) Enteritis: Status: Acute Assessment and Plan: Symptoms appear resolved Abdomen is soft, benign and nontender No fever Looks well overall Slowly advance diet as tolerated GI follow up Time Spent With Patient Time: Total time managing care of this patient today ____ minutes. Quality Stroke Does the patient have a stroke diagnosis?: No VTE Prior VTE?: No VTE Risk Level:: Medical - moderate - high VTE Device Contraindication: N/A - Device Ordered VTE Drug Contraindication: Treatment Not Indicated
[2024-09-11 07:48] LABS: Anion Gap 12 (12-20); Blood Urea Nitrogen 3 mg/dL (9-16); Calcium 8.0 mg/dL (8.4-10.2); Carbon Dioxide 28 mmol/L (22-29); Chloride 105 mmol/L (96-108); Creatinine Clr Calc Pharmacy 136.3; Estimated Glomerular Filt Rate > 60; Iron 25 mcg/dL (45-160); Magnesium 1.8 mg/dL (1.6-2.6); Percent Iron Saturation 12 % (15-50); Potassium 4.0 mmol/L (3.3-5.1); Sodium 141 mmol/L (135-145); Total Iron Binding Capacity 202 mcg/dL (228-428); Unsaturated Iron Binding 177 ug/dL
[2024-09-11 08:02] LABS: Ferritin 268 ng/mL (20-250)
[2024-09-11 08:21] LABS: Folate 4.2 ng/mL (> or = 4.0); Vitamin B12 422 pg/mL (200-900)
[2024-09-11 08:52] LABS: CDiff Gene PCR NEGATIVE (Negative)
[2024-09-11 12:37] LABS: E. coli EAEC Not Detected (Not Detect.); E. coli EPEC Not Detected (Not Detect.); E. coli ETEC Not Detected (Not Detect.); E. coli STEC Not Detected (Not Detect.); Shigella sp./EIEC Not Detected (Not Detect.)
--- NOTE | 2024-09-11 13:20 | MHC.CM.PN ---
Patient not medically cleared for dc. CM will continue to follow.
--- NOTE | 2024-09-11 14:28 | P.PNIM_ITS ---
Subjective Subjective Date of Service: 09/11/24 Interval History: Intractable abdominal pain Review of Systems abd pain improving no nausea or vomiting Review of Systems: Yes all other systems are reviewed and are negative Physical Exam 2 Exam: Exam: General: AO X 3. Resp: air entry fair , no rales or wheezing CVS: S1,S2,RRR GI: soft, mild tender, non distended Neuro: motor grossly intact, alert Psych: appropriate affect, appropriate insight Vital Signs: Vital Signs: Last Vital Signs Temp 97.1 F 09/11/24 07:02 Pulse 71 09/11/24 07:02 Resp 16 09/11/24 07:02 BP 119/71 09/11/24 07:02 Pulse Ox 95 09/11/24 07:02 O2 Del Method Room Air 09/11/24 07:02 BMI result Body Mass Index 29.5 Objective Data Active Medications Acetaminophen (Acetaminophen 325 Mg Tablet) 650 mg PO Q6H PRN PRN Reason: Pain, Mild 1-3,fever,headache Calcium Carbonate (Calcium Carbonate 750 Mg Tab.Chew) 750 mg PO Q4H PRN PRN Reason: Heartburn Ampicillin Sodium/Sulbactam (Sodium 1.5 gm/ Sodium Chloride) 100 mls @ 200 mls/hr IV Q6H [facility] Last Infusion: 09/11/24 13:57 Dose: Infused Documented By: PARMINDER Magnesium Hydroxide (Milk Of Magnesia 30 Ml Oral.Susp) 30 ml PO DAILY PRN PRN Reason: Constipation Melatonin (Melatonin 3 Mg Tablet) 6 mg PO BEDTIME PRN PRN Reason: Insomnia Morphine Sulfate (Morphine Sulfate 4 Mg/Ml Cartridge) 4 mg IVPUSH Q4H PRN; Protocol PRN Reason: Pain, Severe (Pain Scale 7-10) Ondansetron HCl (Ondansetron Hcl 4 Mg/2 Ml Vial) 4 mg IVPUSH Q8H PRN PRN Reason: Nausea and Vomiting Sodium Chloride (0.9 % Sodium Chloride Flush 3 Ml Syringe) 3 ml IVFLUSH QSHIFT [facility] Last Admin: 09/11/24 13:59 Dose: 3 ml Documented By: PARMINDER Labs 09/11/24 06:57 09/11/24 06:57 Labs: Laboratory Results - last 24 hr 09/11/24 09/11/24 09/11/24 06:57 07:15 Unknown MCV 86.6 MCH 28.2 MCHC 32.5 RDW 13.3 Plt Count 173 MPV 11.2 Absolute Nucleated RBC 0.000 Nucleated RBC % (auto) 0.0 ESR 14 Anion Gap 12 Estim Creat Clear Calc 136.3 Estimated GFR > 60 Random Glucose 89 Calcium 8.0 L Magnesium 1.8 Iron 25 L TIBC 202 L % Saturation 12 L Unsat Iron Binding 177 Ferritin 268 H C-Reactive Protein 5.01 H Vitamin B12 422 Folate 4.2 Stl C. cayetanensis PCR Not Detected Stool Rotavirus A PCR Not Detected Stl Adenov F 40/41 PCR Not Detected Stool Astrovirus (PCR) Not Detected Stool Campylobacter PCR Not Detected Stool Cryptosporidium PCR Not Detected Stl Sh Tox Pr E STEC PCR Not Detected Stool E coli O157 PCR Not applicable Stl Enterotoxigenic E PCR Not Detected Stool EPEC (PCR) Not Detected Stool EAEC (PCR) Not Detected Stl E. histolytica PCR Not Detected Stool Giardia Lamblia PCR Not Detected Stl P. shigelloides PCR Not Detected Stool Salmonella PCR Not Detected Stool Sapovirus (PCR) Not Detected Stl Shigella/EIEC PCR Not Detected St Y.enterocolitica PCR Not Detected Stool Vibrio (PCR) Not Detected Stl Vibrio cholerae PCR Not Detected Stl Norovirus GI/GII PCR Not Detected C. difficile Tox B Gene NEGATIVE Microbiology Microbiology Results: Microbiology 09/09/24 22:38 Blood Culture - Preliminary Blood - Venous No growth after 24 hours. 09/09/24 22:38 Blood Culture - Preliminary Blood - Venous No growth after 24 hours. Assessment and Plan (1) Enteritis: Status: Acute Plan 34M no significant PMH, presented with abdominal pain found to have enteritis with suspicion of IBD as well as small intra-abdominal abscess Intractable abdominal pain Due to suspected new onset IBD complicated by acute enteritis and abscess General surgery appreciated no surgical intervention for now, continue IV Unasyn Follow up cultures, follow up gastroenterology DVT prophylaxis-mechanical due to possible scope or intervention Full code reason for continued hospitalization:iv abx Quality Stroke Does the patient have a stroke diagnosis?: No VTE Prior VTE?: No VTE Risk Level:: Medical - moderate - high VTE Device Contraindication: N/A - Device Ordered VTE Drug Contraindication: Treatment Not Indicated
[2024-09-11 16:00] VITALS: BP 127/82; PULSE 74; RESP 16; TEMP 36.2; O2SAT 96
[2024-09-11 23:55] VITALS: BP 116/65; PULSE 68; RESP 16; TEMP 36; O2SAT 97
[2024-09-12] MEDS: Ampicillin Sodium/Sulbactam Na 1.5 GM in 0.9 % Sodium Chloride 100 ML IV ×2 (01:51→07:25)
[2024-09-12] MEDS: 0.9 % Sodium Chloride Flush 3 ML SYRINGE IVFLUSH (07:29)
[2024-09-12 07:31] VITALS: BP 117/67; PULSE 62; RESP 12; TEMP 36.4; O2SAT 96
--- NOTE | 2024-09-12 08:25 | P.PNGS_ITS ---
Subjective Subjective Date of Service: 09/12/24 Interval history: Feels well Denies abdominal pain Denies nausea or vomiting Tolerating regular diet Passing flatus Physical Exam 2 Vital Signs: Vital Signs: Last Vital Signs Temp 97.5 F 09/12/24 07:31 Pulse 62 09/12/24 07:31 Resp 12 09/12/24 07:31 BP 117/67 09/12/24 07:31 Pulse Ox 96 09/12/24 07:31 O2 Del Method Room Air 09/12/24 07:31 BMI result Body Mass Index 29.5 Const: General: comfortable and no acute distress Resp: Effort & Inspection: normal respiratory effort Cardio: Rate: regular rate GI: Palpation (GI): Soft to palpation, not firm, nontender and no guarding Objective Data Active Medications Acetaminophen (Acetaminophen 325 Mg Tablet) 650 mg PO Q6H PRN PRN Reason: Pain, Mild 1-3,fever,headache Calcium Carbonate (Calcium Carbonate 750 Mg Tab.Chew) 750 mg PO Q4H PRN PRN Reason: Heartburn Ampicillin Sodium/Sulbactam (Sodium 1.5 gm/ Sodium Chloride) 100 mls @ 200 mls/hr IV Q6H [facility] Last Infusion: 09/12/24 08:22 Dose: Infused Documented By: JOSE Magnesium Hydroxide (Milk Of Magnesia 30 Ml Oral.Susp) 30 ml PO DAILY PRN PRN Reason: Constipation Melatonin (Melatonin 3 Mg Tablet) 6 mg PO BEDTIME PRN PRN Reason: Insomnia Morphine Sulfate (Morphine Sulfate 4 Mg/Ml Cartridge) 4 mg IVPUSH Q4H PRN; Protocol PRN Reason: Pain, Severe (Pain Scale 7-10) Ondansetron HCl (Ondansetron Hcl 4 Mg/2 Ml Vial) 4 mg IVPUSH Q8H PRN PRN Reason: Nausea and Vomiting Sodium Chloride (0.9 % Sodium Chloride Flush 3 Ml Syringe) 3 ml IVFLUSH QSHIFT [facility] Last Admin: 09/12/24 07:29 Dose: 3 ml Documented By: JOSE Labs 09/11/24 06:57 09/11/24 06:57 Labs: Laboratory Results - last 24 hr 09/11/24 09/11/24 09/11/24 06:57 07:15 Unknown ESR 14 Stl C. cayetanensis PCR Not Detected Stool Rotavirus A PCR Not Detected Stl Adenov F 40/41 PCR Not Detected Stool Astrovirus (PCR) Not Detected Stool Campylobacter PCR Not Detected Stool Cryptosporidium PCR Not Detected Stl Sh Tox Pr E STEC PCR Not Detected Stool E coli O157 PCR Not applicable Stl Enterotoxigenic E PCR Not Detected Stool EPEC (PCR) Not Detected Stool EAEC (PCR) Not Detected Stl E. histolytica PCR Not Detected Stool Giardia Lamblia PCR Not Detected Stl P. shigelloides PCR Not Detected Stool Salmonella PCR Not Detected Stool Sapovirus (PCR) Not Detected Stl Shigella/EIEC PCR Not Detected St Y.enterocolitica PCR Not Detected Stool Vibrio (PCR) Not Detected Stl Vibrio cholerae PCR Not Detected Stl Norovirus GI/GII PCR Not Detected C. difficile Tox B Gene NEGATIVE Microbiology Microbiology Results: Microbiology 09/09/24 22:38 Blood Culture - Preliminary Blood - Venous No growth after 48 hours. 09/09/24 22:38 Blood Culture - Preliminary Blood - Venous No growth after 48 hours. Procedures Date of Service Date of Service: 09/12/24 Progress Note: A&P Assessment and plan (1) Enteritis: Status: Acute Assessment and Plan: Symptoms resolved Tolerating regular diet Good GI functions Abdomen is soft and benign and nontender Likely IBD GI follow up Management as per hospitalist service Time Spent With Patient Time: Total time managing care of this patient today ____ minutes. Quality Stroke Does the patient have a stroke diagnosis?: No VTE Prior VTE?: No VTE Risk Level:: Medical - moderate - high VTE Device Contraindication: N/A - Device Ordered VTE Drug Contraindication: Treatment Not Indicated
--- NOTE | 2024-09-12 11:39 | MHC.CM.PN ---
Patient medically cleared for dc home self care. Mother at bedside to transport.
--- NOTE | 2024-09-12 12:28 | PM.DS ---
DS: Providers Provider Date of Service: 09/12/24 Date of admission: 09/09/24 22:23 Date of discharge: 09/12/24 Primary care physician: None Physician Consults: 09/09/24 23:05 Consult to Gastroenterology Routine Consulting Provider: Jacky Farooq Reason for consultation: intractable abd pain ?IBD Consult to General Surgery Routine Consulting Provider: [facility] Reason for consultation: ?intra abdominal abscess Attending physician on discharge: Siddharth Robins Discharging clinician: Siddharth Robins DS: Diagnosis Discharge Diagnosis (1) Enteritis: Status: Acute DS: Summary Hospital Course Hospital Course: HPI: 34-year-old male with no pertinent past medical history and not on prescription medications who presents to the emergency department for evaluation of abdominal pain and vomiting. Patient states he had sudden onset of left-sided abdominal pain that started in the afternoon, which was sharp and radiated across his abdomen, constant and without any relieving factors. It lasted until patient came to the ER and received IV analgesics. Patient had associated 3 episodes of nonbloody emesis. No diarrhea. Patient states this happened about 3 weeks ago when he had similar pain but it self-resolved. He has not eaten anything since the pain. No history of intra-abdominal surgery. No fever, chest pain, palpitations, changes in urinary habits. In the emergency department, patient was found to have leukocytosis and imaging concerning for probable intra-abdominal abscess. General surgery was consulted who requested admission to medicine team. Hospital course: Patient with no significant past medical history-came with abdominal pain CT abdomen was done-Distal small bowel enteritis/inflammation raising a suspicion of Crohn's based on the appearance of the CT. Workup with [facility] lab for Crohn added, C diff and GI panel sent-patient was started on IV antibiotics, symptomatic management. With the above management patient seems to be improved significantly, seen by GI recommend a F/U CT in about a month and then eventual colonoscopy. Patient is to follow-up with Dr. Farooq office outpatient. Complete Augmentin 875 mg p.o. b.i.d. for 5 days. Avoid aspirin or NSAIDs until followed by GI. plan: Augmentin 875 mg p.o. b.i.d. for 5 more days. Avoid aspirin or NSAIDs until followed by GI. GI follow-up with Dr. Farooq office as above-a F/U CT in about a month and then eventual colonoscopy. Dr Jacky farooq 's Office will arrange their own appointment. Above management discussed with the patient in detail length he understand and in agreement with the above plan, time spent 45 minute, all question answered, staff was present during conversation. Time Attestation Total time managing care of this patient today: 45 mintues. Discharge Coordination Time (in mins): 45 min Quality: Safe Use of Opioids Does Pt have an Active Cancer Diagnosis on the Problem List?: No Quality: Stroke Does the patient have a stroke diagnosis?: No Physical Exam Exam: Exam: General: AO X 3. Resp: air entry fair , no rales or wheezing CVS: S1,S2,RRR GI: soft, mild tender, non distended Neuro: motor grossly intact, alert Psych: appropriate affect, appropriate insight Vital Signs: Vital Signs: Last Vital Signs Temp 97.5 F 09/12/24 07:31 Pulse 62 09/12/24 07:31 Resp 12 09/12/24 07:31 BP 117/67 09/12/24 07:31 Pulse Ox 96 09/12/24 07:31 O2 Del Method Room Air 09/12/24 07:31 BMI result Body Mass Index 29.5 DS: Data Data Completed and Pending Labs on day of discharge: Laboratory Results - last 24 hr 09/11/24 Unknown Stl C. cayetanensis PCR Not Detected Stool Rotavirus A PCR Not Detected Stl Adenov F 40/41 PCR Not Detected Stool Astrovirus (PCR) Not Detected Stool Campylobacter PCR Not Detected Stool Cryptosporidium PCR Not Detected Stl Sh Tox Pr E STEC PCR Not Detected Stool E coli O157 PCR Not applicable Stl Enterotoxigenic E PCR Not Detected Stool EPEC (PCR) Not Detected Stool EAEC (PCR) Not Detected Stl E. histolytica PCR Not Detected Stool Giardia Lamblia PCR Not Detected Stl P. shigelloides PCR Not Detected Stool Salmonella PCR Not Detected Stool Sapovirus (PCR) Not Detected Stl Shigella/EIEC PCR Not Detected St Y.enterocolitica PCR Not Detected Stool Vibrio (PCR) Not Detected Stl Vibrio cholerae PCR Not Detected Stl Norovirus GI/GII PCR Not Detected Preliminary micro results at discharge 09/09/24 22:38 Blood Culture - Preliminary Blood - Venous No growth after 48 hours. 09/09/24 22:38 Blood Culture - Preliminary Blood - Venous No growth after 48 hours. Additional Comments Additional comments: Right lower quadrant small bowel wall thickening with diffuse stranding Probable inflammatory bowel disease as above Probable 1.2 cm abscess along superior bladder wall Right superior bladder wall thickening indicates bladder involvement Note the appendix is not identified Discharge Plan Discharge Anticipated Discharge Date/Time: 09/12/24 11:47 Patient Disposition: Home, Self-Care Discharge Diagnosis: Enteritis possible ibd Referrals: Physician,None [Primary Care Provider, Medical] - 1 Week Jacky Farooq MD [Physician, Gastroenterology] - 1 Week Discharge Medications: New amoxicillin-pot clavulanate 875-125 mg Tablet 1 tab PO Q12H Qty: 10 0RF Continued acetaminophen 500 mg Tablet 1,000 mg PO Q6H PRN (Reason: Pain) melatonin 10 mg Tablet 10 mg PO BEDTIME PRN (Reason: Sleep) Discontinued ibuprofen 200 mg Tablet 400 mg PO Q8H PRN (Reason: Pain) Discharge Orders: Discharge Order (Routine); Ordered 09/12/24 Ordered By: Siddharth Robins Diet: Advance to usual diet Activity on Discharge: As tolerated Stand Alone Forms: Patient Portal Discharge page, Work/School Release Print Language: Wallisian Care Plan Goals: Patient with no significant past medical history-came with abdominal pain CT abdomen was done-Distal small bowel enteritis/inflammation raising a suspicion of Crohn's based on the appearance of the CT. Workup with [facility] lab for Crohn added, C diff and GI panel sent-patient was started on IV antibiotics, symptomatic management. With the above management patient seems to be improved significantly, seen by GI recommend a F/U CT in about a month and then eventual colonoscopy. Patient is to follow-up with Dr. Farooq office outpatient. Complete Augmentin 875 mg p.o. b.i.d. for 5 days. Avoid aspirin or NSAIDs until followed by GI. Health Concerns: As above. Plan of Treatment: Augmentin 875 mg p.o. b.i.d. for 5 more days. GI follow-up with Dr. Farooq office as above-a F/U CT in about a month and then eventual colonoscopy. Dr Jacky farooq 's Office will arrange their own appointment. Assessment: As above. Patient Instructions: Enteritis (DC) Discharge Date/Time: 09/12/24 12:54
[2024-09-12 12:39] VITALS: BP 131/76; PULSE 80; RESP 18; TEMP 36.4; O2SAT 100
--- NOTE | 2024-09-12 13:34 | P.CDIM_ITS ---
PROVIDER RESPONSE TEXT: To clarify, the appropriate diagnosis supported by the clinical indicators: Enteritis: enteritis ( ibd vs baterial) QUERY TEXT: PHYSICIAN'S DOCUMENTATION REQUEST Date of Query: 09/12/2024 09:02 AM EDT Patient Name: Esau Maxwell Admit Date: 09/10/2024 Dear Siddharth Robins MD, A review of the medical record indicates additional documentation may be needed. Please review below and update the documentation accordingly. Clinical Indicators: Progress note dated 09/11/24 - Intractable abdominal pain due to suspected new onset IBD complicated by acute enteritis and abscess. General surgery no intervention for now. Continue IV Unasyn GI consult 09/11/24 - Given the patient's acute presentation including the 48-hour episode last week of what sounds like some type of gastroenteritis, this does raise suspicion of a possible bacterial infection as the cause of his symptoms. Based on the above, could you clarify if there is any further specifics you can provide for this patient's Enteritis diagnosis? Enteritis toxic, viral, infectious, bacterial, chronic, regional, megacolon etc. Other specified etiology Other (explain) Clinically unable to determine (explain) Thank you, Mahnaz Cates, CCS, CDIS Use of terms such as suspected, likely, concern for, or probable (associated with a specific diagnosis that is being evaluated, monitored, or treated as if it exists) are acceptable and can be coded in the inpatient setting, when documented at the time of discharge. Please use your independent medical judgment in providing your response. THIS QUERY IS PART OF THE PERMANENT MEDICAL RECORD
[2024-09-18 22:08] LABS: Calprotectin, Fecal 684 mcg/g
== END 2024-09-12 12:54 | disposition home or self-care (01) | DRG 245 ==
LOC: HO.ED 22:22 → HO.EDOVER 22:29 → HO.S3 09-10 14:00
PROVIDERS: Internal Medicine; Physician Assistant; Physician Assistant Medical; Admitting Provider Student in an Organized Health Care Education/Training Program; Emergency Provider Emergency Medicine; Visit Provider Internal Medicine
DX: K50.914 Crohn's disease, unspecified, with abscess (principal); A04.9 Bacterial intestinal infection, unspecified; K52.3 Indeterminate colitis; F17.210 Nicotine dependence, cigarettes, uncomplicated; Z71.6 Tobacco abuse counseling; Z20.822 Contact with and (suspected) exposure to COVID-19
CPT/HCPCS: 36415; 74177; 80048; 80053; 80307; 81003; 81479; 82397; 82607; 82728; 82746; 83520; 83540; 83605; 83690; 83735; 83993; 85025; 85027; 85652; 86140; 87040; 87493; 87507; 87637; 88346; 88350; 99285; J0295; J2270; J2405; J2543; J3374; Q9967

== ENCOUNTER → 2024-09-09 17:15 | Outpatient (BNV) | payer MEDICAID, SELFPAY | PROVIDERS: Emergency Provider Emergency Medicine; Visit Provider Radiology Diagnostic Radiology | DX: K56.609 Unspecified intestinal obstruction, unspecified as to partial versus complete obstruction (principal); N32.89 Other specified disorders of bladder | CPT/HCPCS: 74177 ==

== ENCOUNTER → 2024-09-09 22:23 | Outpatient (BNV) | payer MEDICAID, SELFPAY | PROVIDERS: Admitting Provider Student in an Organized Health Care Education/Training Program; Emergency Provider Emergency Medicine; Visit Provider Physician Assistant Surgical | DX: K52.9 Noninfective gastroenteritis and colitis, unspecified (principal) | CPT/HCPCS: 99222; 99232 ==

== ENCOUNTER → 2024-09-09 22:23 | Outpatient (BNV) | payer MEDICAID, SELFPAY | PROVIDERS: Admitting Provider Student in an Organized Health Care Education/Training Program; Emergency Provider Emergency Medicine; Visit Provider Student in an Organized Health Care Education/Training Program | DX: K52.9 Noninfective gastroenteritis and colitis, unspecified (principal) | CPT/HCPCS: 99222; 99231; 99232 ==

== ENCOUNTER 2024-11-11 13:20 | Outpatient (AMB) | payer OTHER, SELFPAY ==
--- OUTSIDE RECORDS SUMMARY | 2024-09-15 18:45 | XMS_ITS ---
Author Organization [facility] Address [address] [place] [address] Care Team Providers Care Lathe Hand Name Role Phone NONE, NONE Primary Care Provider Daryn jeremy Capri Jacky Melgar [phone],OV Encounters Encounter Location Date Provider Diagnosis [facility] [address] [place] [address] 09/15/[address] scan, gastrointestinal tract R93.3 Assessments Encounter Date Diagnosis (ICD Code) Assessment Notes Treatment Notes Treatment Clinical Notes Section Notes 09/15/[address] scan, gastrointestinal tract (ICD-10 - R93.3) Plan Of Treatment Pending Test Test Name Order Date BUN 09/15/2024 CT ABD & PELVIS WITH CONTRAST 09/15/2024 Creatinine 09/15/2024 Next Appt Details Provider Name:Jacky Farooq , 02/07/2025 02:00:00 PM, [address], [address], [place], [address], Progress Notes * IVAN QUEENOB:1990 (34 yo M)Acc No.[id number]:09/15/2024 Patient: FELICITAS SANCHEZ :1990 A ge:34 Y S ex:Male Address:[address] [place] [address], [place], [id number] Subjective: * Chief Complaints: * C T,OV * Medical History: * Surgical History: * Hospitalization/Major Diagno stic Procedure: * Medications: Objective: * Vitals: * Physical Examination: Assessment: * Assessment: 1. A bnormal CT scan, gastrointestinal tract - R93.3 (Primary) Plan: * Treatment: * * Procedure Codes: * * Date:
--- NOTE | 2024-11-11 14:28 | AM.OFFWIN_ITS ---
Intake Vital Signs 11/11/24 14:29 Height 5 ft 5 in Weight 170 lb BMI 28.3 BP 124/86 Blood Pressure Location Lt brachial Position Sitting Pulse 72 Pulse Source Pulse Oximeter Temp 98.4 F Temp Source Oral Pulse Oximetry (%) 98 Oxygen Delivery Method Room Air Intake Visit Reasons: EP-lower abdominal pain Intake Note: pt presents with possible recurring infection in lower intestine c/o pain and diarrhea- was seen and treated [place] [facility] approx a month ago. last bout of diarrhea around 12:30pm today- denies any bloody matter Patient Tobacco Use Status: Current everyday Tobacco user Allergies environmental allergies Allergy (Verified 11/11/24 14:30) Sneezing Do you need a note to return to daycare/school/sports/work: Yes HPI HPI Comments 2 History of Present Illness Details History of Present Illness - The patient is a 34-year-old male pres enting with lower abdominal pain and diarrhea which began a few hours ago. - He has a history of an intrabdominal i nfection diagnosed in September, treated with antibiotics, and advised for follow-up imaging and colonoscopy, which have not been completed. - Current symptoms include lower abdomin al pain and an episode of diarrhea, with no fever or blood in stools, but worsening pain. - There is a suspicion of Crohn's diseas e, and the patient faces challenges in securing follow-up care due to insurance issues. - He has no radiation of the pain. - He has a constant sharp pain and has n o constipation. - He denies blood in the stool, melena, hematochezia, CP, SOB, dysuria, or hematuria. Physical Exam General: Cooperative, healthy appearing, comfortable, no acute distress and well developed Orientation: Patient oriented x3 Limitations: No limitations Respiratory: Normal respiratory effort and able to speak in complete sentences. Clear to auscultation bilaterally. No w/r/r noted. Cardiovascular: Regular rate and rhythm. Normal S1 and S2. No m/r/g noted. GI: Hypoactive BS noted. Soft, non-distended, tender to palpation in the lower quadrants bilaterally. No guarding, rebound, or Rovsing noted. Negative CVA tenderness noted. Skin: No rashes or lesions noted Patient was informed and verbally consented to the use of an ambient scribe for clinic note documentation during this visit. [facility] Social History Household Members: Other Household Members Other:: mother and father Housing: House Do you presently have visiting nurse or other home services: No Alcohol intake: current Alcohol intake frequency: holidays/special occasions only Patient Tobacco Use Status: Current everyday Tobacco user Tobacco use type: Pipe Cigarettes Per Day: 3 Years Smoked: 8 Second Hand Smoke Exposure: No service: No Review of Systems Const All systems reviewed & are unremarkable except as noted in HPI and below Physical Exam Vital Signs: Last Vital Signs Temp 98.4 F 11/11/24 14:29 Pulse 72 11/11/24 14:29 BP 124/86 11/11/24 14:29 Pulse Ox 98 11/11/24 14:29 Oxygen Delivery Method Room Air 11/11/24 14:29 BMI result Body Mass Index 28.3 Assessment & Plan Assessment & Plan (1) Lower abdominal pain: Code(s): R10.30 - Lower abdominal pain, unspecified Plan Most likely IBS vs Chrons vs abscess vs diverticulitis vs UTI was admitted for an intra abdominal abscess and had IV antibiotics he was supposed to have a repeat CT in one month and f/u with GI but the patient is having a hard time getting a PCP that takes his insurance and has not been able to get an appt with the GI he was referred to Plan - Pt needs a follow-up CT scan to assess the status of the abscess. - Recommend returning to the emergency room for imaging if symptoms persist or worsen, as follow-up care is not currently established. - will order a urine and labs today - advised pt to call insurance and establish with a PCP - advised him to go to the ER for worsening pain, diarrhea, fever, vomiting, etc Orders: Orders Comprehensive Met. Panel Today R10.30 - Lower abdominal pain, unspecified Complete Blood Count Auto Diff Today R10.30 - Lower abdominal pain, unspecified UA CC w/rflx Micro + Cult Today R10.30 - Lower abdominal pain, unspecified Medications: Discontinued amoxicillin-pot clavulanate 875-125 mg Discontinued Reason: Patient Completed Course 1 tab PO Q12H 10 tabs 0RF Coding Level of Care Code Est Pt Level 4 (06327) Diagnoses Lower abdominal pain R10.30
[2024-11-11 14:29] VITALS: BP 124/86; PULSE 72; TEMP 36.9; O2SAT 98; BMI 28.3
--- OUTSIDE RECORDS SUMMARY | 2024-11-11 15:45 | XMS_ITS | Patient Health Record ---
Author Organization [facility] Address [address] [place] [address] Care Team Providers Care Printer'S Devil Name Role Phone NONE, NONE Primary Care Provider Jacky Odell [phone] Results Component Value Reference Range Notes Erythrocyte Sedimentation Ra te (Not yet reviewed by provider) Interpretation: Performing Lab:[address] [id number] Notes/Report: Erythrocyte Sedimentation Rate 14 0-15 MM/HR Patients with polycythemia and many hemoglobin abnormalities may have depressed sed rates whereas patients with anemia may have elevated sed rates. Basic Metabolic Panel (Not y et reviewed by provider) Interpretation: Performing Lab:[facility], [address] [place] [id number] Notes/Report: Sodium 141 135-145 mmol/L Potassium 4.0 3.3-5.1 mmol/L Chloride 105 96-108 mmol/L Carbon Dioxide 28 22-29 mmol/L Anion Gap 12 12-20 Blood Urea Nitrogen 3 9-16 mg/dL Creatinine 0.76 0.5-1.4 mg/dL Creatinine Clr Calc Pharmacy 136.3 eGFR (calculated from the MDRD study equation) and eCrCl (calculated from the Cockcroft-Gault equation) are based on different parameters and may not yield comparable results. If eCrCl result is absurd, please check patient's height/weight. Estimated Glomerular Filt Rate > 60 Chronic Kidney Disease: Estimated GFR < 60 mL/min/1.73m2 Severe Kidney Disease: Estimated GFR < 15 mL/min/1.73m2 Glucose Random 89 60-115 mg/dL Calcium 8.0 8.4-10.2 mg/dL Magnesium (Not yet reviewed by provider) Interpretation: Performing Lab:[address] [id number] Notes/Report: Magnesium 1.8 1.6-2.6 mg/dL IRON PROFILE (Not yet review ed by provider) Interpretation: Performing Lab:[address] [phone] Notes/Report: Iron 25 45-160 mcg/dL Total Iron Binding Capacity 202 228-428 mcg/dL Percent Iron Saturation 12 15-50 % Unsaturated Iron Binding 177 Ferritin (Not yet reviewed b y provider) Interpretation: Performing Lab:[address] [id number] Notes/Report: Ferritin 268 20-250 ng/mL C Reactive Protein (Not yet reviewed by provider) Interpretation: Performing Lab:[address] [id number] Notes/Report: C Reactive Protein 5.01 < or = 0.50 mg/dL Vitamin B12 and Folate (Not yet reviewed by provider) Interpretation: Performing Lab:[address] [phone] Notes/Report: Vitamin B12 422 200-900 pg/mL NORMAL 200-900 PG/ML INDETERMINATE 160-199 PG/ML DEFICIENT < 160 PG/ML Folate 4.2 > or = 4.0 ng/mL Reference Values: > or = 4.0 ng/mL < 4.0 ng/mL suggests folate deficiency Methotrexate, aminopterin and folinic acid (leucovorin) are chemotherapeutic agents whose molecular structures are similar to folate; therefore, the Interior [employer] folate assay cannot be used for patients using these drugs. [facility] (Not yet reviewed by provider) Interpretation: Performing Lab:[address] [phone] Notes/Report: [facility] SEE NOTE SEE SCANN ED RESULTS IN EMR Calprotectin, Fecal (Not yet reviewed by provider) Interpretation: Performing Lab:[address] [phone] Notes/Report: Calprotectin, Fecal 684 Reference Range: <50 Normal 50-120 Borderline >120 Elevated Calprotectin in Crohn's disease and ulcerative colitis can be five to several thousand times above the reference population (50 mcg/g or less). Levels are usually 50 mcg/g or less in healthy patients and with irritable bowel syndrome. Repeat testing in 4-6 weeks is suggested for borderline values. THIS TEST WAS PERFORMED AT: [facility] [place] [address] [place] [address] JONATHAN OLMOS MD,PHD,HAYDE CDiff Gene PCR (Not yet revi ewed by provider) Interpretation: Performing Lab:[facility], [address] [place] [phone] Notes/Report: CDiff Gene PCR NEGATIVE Negative If C. difficile strongly suspected despite one negative test, a second test may be sent vs. empiric treatment for C. difficile infection. GI PANEL (Not yet reviewed b y provider) Interpretation: Performing Lab:[address] [phone] Notes/Report: Campylobacter Not Detected Not Detect. Plesiomonas shigelloides Not Detected Not Detect. Salmonella Not Detected Not Detect. Vibrio Not Detected Not Detect. Vibrio Cholerae Not Detected Not Detect. Yersinia enterocolitica Not Detected Not Detect. E. coli EAEC Not Detected Not Detect. E. coli EPEC Not Detected Not Detect. E. coli ETEC Not Detected Not Detect. E. coli STEC Not Detected Not Detect. E. coli O157 Not applicable Not Detect. E. coli containing the O157 antigen are a subset of Shiga-like toxin-producing E. coli (STEC). Shigella sp./EIEC Not Detected Not Detect. Cryptosporidium Not Detected Not Detect. Cyclospora cayetanensis Not Detected Not Detect. Entamoeba histolytica Not Detected Not Detect. Giardia lamblia Not Detected Not Detect. Adenovirus F 40/41 Not Detected Not Detect. Astrovirus Not Detected Not Detect. Norovirus GI/GII Not Detected Not Detect. Rotavirus A Not Detected Not Detect. Sapovirus Not Detected Not Detect. All results must be correlated with clinical findings. Negative results do not exclude the possibility of gastrointestinal infection and should not be used as the sole basis for diagnosis, treatment, or other management decisions. Virus, bacteria, and parasite nucleic acid may persist in vivo independently of organism viability. Additionally, some organisms may be carried asymptomatically. Detection of organism targets does not imply that the corresponding organisms are infectious or are the causative agents for clinical symptoms. There is a risk of false negative values due to the presence of sequence variants in the gene targets of the assay, amplification inhibitors in specimens, or inadequate numbers of organisms for amplification. The identification of several diarrheagenic E. coli pathotypes has historically relied upon phenotypic characteristics. This panel targets genetic determinants characteristic of most pathogenic strains, but may not detect all strains having phenotypic characteristics of a pathotype. The performance of this test has not been established for monitoring treatment of infection with any of the panel organisms. This assay is performed by Multiplexed PCR, utilizing the [employer] Array. Reason For Referral No Information Encounters Encounter Location Date Provider Diagnosis [facility] [address] [place] [address] 09/15/[address] scan, gastrointestinal tract R93.3 Assessments Encounter Date Diagnosis (ICD Code) Assessment Notes Treatment Notes Treatment Clinical Notes Section Notes 09/15/[address] scan, gastrointestinal tract (ICD-10 - R93.3) Plan Of Treatment Pending Test Test Name Order Date BUN 09/15/2024 CT ABD & PELVIS WITH CONTRAST 09/15/2024 Erythrocyte Sedimentation Rate Basic Metabolic Panel 09/11/2024 Creatinine 09/15/2024 Magnesium 09/11/2024 IRON PROFILE 09/11/2024 Ferritin 09/11/2024 C Reactive Protein 09/11/2024 Vitamin B12 and Folate 09/11/2024 [facility] 09/11/2024 Calprotectin, Fecal 09/11/2024 CDiff Gene PCR 09/11/2024 GI PANEL 09/11/2024 Next Appt Details Provider Name:Jacky Farooq , 02/07/2025 02:00:00 PM, [address], [address], [place], [address], Insurance Providers Payer Name Payer Address Payer Phone Subscriber Number Group Number Insured Name Patient Relationship to Insured Coverage Start Date Coverage End Date [facility] [facility] [address] [place] [phone] [id number] FELICITAS QUEEN Self - patient is the insured
== END 2024-11-11 15:21 | disposition home or self-care (01) ==
PROVIDERS: Visit Provider Physician Assistant Medical
DX: R10.30 Lower abdominal pain, unspecified (principal)

== ENCOUNTER → 2024-11-11 13:20 | Outpatient (BNVA) | payer OTHER, SELFPAY | PROVIDERS: Visit Provider Physician Assistant Medical | DX: R10.30 Lower abdominal pain, unspecified (principal); R19.7 Diarrhea, unspecified | CPT/HCPCS: 99212 ==

== ENCOUNTER 2024-11-11 18:11 | Emergency (ER) | payer OTHER, SELFPAY ==
[2024-11-11] VITALS (15 sets, daily range): BP systolic 83–140; BP diastolic 38–86; PULSE 66–120; RESP 16–21; TEMP 36.7–39.1; O2SAT 95–99; BMI 28.3
--- NOTE | ~2024-11-11 | CT_ITS ---
CLINICAL HISTORY: infection CT abdomen and pelvis with contrast Comparison: CT/SR - CT ABDOMEN PELVIS W IV CON - 09/09/24 18:54 EDT Findings: LIMITED CHEST: Lung bases are clear. LIVER: No focal liver lesion. BILIARY: No gallbladder wall thickening, radiopaque stone, or ductal dilatation. PANCREAS: No mass or ductal dilatation. SPLEEN: No splenomegaly. KIDNEYS: No hydronephrosis or radiopaque stone. ADRENALS: No nodule. VASCULAR: No aneurysm. RETROPERITONEUM: No lymphadenopathy or mass. BOWEL/MESENTERY: There is significant inflammatory stranding in the right lower quadrant with multiple loops of thickened sigmoid colon. There is appearance of close association with the terminal ileum (series 8, image 65). No free air. Small volume ascites. ABDOMINAL WALL: No mass or significant abnormality. URINARY BLADDER: Focal thickening of the superior bladder dome. PELVIC NODES: No pelvic lymphadenopathy. PELVIC ORGANS: Normal for age. BONES: No acute fracture. OTHER: Negative. IMPRESSION: Inflammatory stranding and bowel wall thickening of the sigmoid colon in the right lower quadrant may represent active infectious or inflammatory colitis. There is close association with the adjacent terminal ileum, and ileocolonic fistula is not excluded if there is a clinical history of inflammatory bowel disease. Suspect reactive thickening of the bladder dome. No measurable fluid collection. This document has been electronically signed by: Donna Soler MD on 11/11/2024 21:13:21
--- NOTE | 2024-11-11 18:28 | ED.GENADULT ---
[facility] - General Adult General Chief complaint: Abdominal Pain Stated complaint: L side abd pain Time Seen by Provider: 11/11/24 18:25 Source: patient Mode of arrival: ambulatory Limitations: no limitations History of Present Illness ED Provider: Dr. Moreno [facility] narrative: This is a 34-year-old male of abscess of the bladder and a superior wall of the bladder 1.2 cm in size presented to ER today for evaluation of suprapubic pain. Patient is noted to be tachycardic and febrile. Denies any diarrhea however does endorse some nausea. No shortness of breath or chest pain. He stated that this is abscess was treated with antibiotics and had presumably be resolved. Related Data Home Medications ?Medication ?Instructions ?Recorded ?Confirmed acetaminophen 500 mg tablet 1,000 mg PO Q6H PRN Pain 09/10/24 09/10/24 melatonin 10 mg tablet 10 mg PO BEDTIME PRN Sleep 09/10/24 09/10/24 Allergies Allergy/AdvReac Type Severity Reaction Status Date / Time environmental allergies Allergy Sneezing Verified 11/11/24 18:24 Review of Systems Review of Systems: Pertinent review of systems as mentioned in HPI. All other system otherwise negative. [facility] Past Medical History [facility] Narrative: Medical history as mentioned in [facility] Social History Social History Household Members: Other Household Members Other:: mother and father Housing: House Do you presently have visiting nurse or other home services: No Alcohol intake: current Alcohol intake frequency: a few times a month Patient Tobacco Use Status: Current everyday Tobacco user Tobacco use type: Pipe Cigarettes Per Day: 3 Years Smoked: 8 Smoked in Last 30 Days: Yes Second Hand Smoke Exposure: No Use of substances other than those prescribed or required for medical reasons: No Advance Directives: No Advance Directives Information Provided: Yes Do you have a plan to hurt others: No Plan service: No Physical Exam ED Exam Exam: General: Pleasant, no distress, interacting appropriately Head: Normacephalic, atraumatic ENT: oral mucosa moist, neck supple, no tracheal deviation Cardiovascular: Tachycardia rate, regular rhythm, no murmurs, rubbing, gallops Respiratory: CTAB, no wheeze, rales, rhonchi Gastrointestinal: Soft, non distended, suprapubic tenderness on palpation Extremities: No limb pain or swelling, no calf tenderness Neurological: Awake and alert, no facial droop noted Skin: Warm and dry Psychiatric: Appropriate mood and thoughts Vital Signs: Vital Signs - 24 hr 11/11/24 18:22 11/11/24 19:00 11/11/24 19:30 Temperature 102.3 F H Pulse Rate 107 H 103 H 99 Respiratory Rate 20 20 20 Blood Pressure 117/62 110/59 L 102/42 L Pulse Oximetry 97 96 97 Oxygen Delivery Method Room Air Room Air Room Air 11/11/24 20:15 11/11/24 20:52 11/11/24 21:10 Temperature 101 F H Pulse Rate 99 106 H 96 Respiratory Rate 18 17 20 Blood Pressure 118/64 100/54 L 96/43 L Pulse Oximetry 99 97 99 Oxygen Delivery Method Room Air Room Air Room Air 11/11/24 21:55 11/11/24 22:03 11/11/24 22:10 Temperature Pulse Rate 96 89 88 Respiratory Rate 21 H Blood Pressure 83/38 L 99/49 L 95/44 L Pulse Oximetry 97 Oxygen Delivery Method Room Air 11/11/24 22:30 11/11/24 23:08 11/11/24 23:15 Temperature 98.1 F Pulse Rate 89 75 75 Respiratory Rate 20 Blood Pressure 93/45 L 90/46 L 92/68 Pulse Oximetry 97 Oxygen Delivery Method Room Air 11/11/24 23:28 Temperature Pulse Rate 66 Respiratory Rate Blood Pressure 105/62 Pulse Oximetry Oxygen Delivery Method BMI result Body Mass Index 28.3 Medications Administered Generic Name Dose Route Start Last Admin Trade Name Freq PRN Reason Stop Dose Admin Norepinephrine Bitartrate 8 mg in 250 mls @ 0 mls/hr 11/11/24 22:00 11/11/24 23:28 Levophed IVCONT 0.05 mcg/kg/min .Q0M NISA 7.23 mls/hr Protocol Titration Per Protocol Discontinued Medications Generic Name Dose Route Start Last Admin Trade Name Freq PRN Reason Stop Dose Admin Ceftriaxone Sodium 2 gm 11/11/24 18:23 11/11/24 18:48 Ceftriaxone Sodium 2 Gm Vial IVPUSH 11/11/24 18:24 2 gm ONCE ONE Administration Hydrocortisone Sodium Succinate 100 mg 11/11/24 21:56 11/11/24 22:07 Hydrocortisone Sod Succ/Pf 100 Mg Vial IVPUSH 11/11/24 21:57 100 mg ONCE ONE Administration Lactated Ringer's 2,313.33 mls @ 2,313.33 mls/hr 11/11/24 18:32 11/11/24 20:49 Lr 30 ml/kg infuse over 1 hr (2313.33 ml) 11/11/24 19:31 Infused IV Infusion .Q1H ONE Vancomycin HCl 2,000 mg in 500 mls @ 250 mls/hr 11/11/24 18:32 11/11/24 22:00 Vancomycin/Ns IV 11/11/24 20:31 Infused ONCE ONE Infusion Piperacillin Sod/Tazobactam 100 mls @ 200 mls/hr 11/11/24 18:32 11/11/24 19:20 Sod 4.5 gm/ Sodium Chloride IV 11/11/24 19:01 Infused ONCE ONE Infusion Magnesium Sulfate 2 gm in 50 mls @ 50 mls/hr 11/11/24 19:27 11/11/24 21:20 Magnesium Sulfate/H2o IV 11/11/24 20:26 Infused ONCE ONE Infusion Acetaminophen 1,000 mg in 100 mls @ 400 mls/hr 11/11/24 19:28 11/11/24 19:54 Ofirmev IV 11/11/24 19:42 Infused ONCE ONE Infusion Lactated Ringer's 1,000 mls @ 999 mls/hr 11/11/24 21:15 11/11/24 22:22 Lr IV 11/11/24 22:15 Infused .Q1H1M NISA Infusion Iohexol 85 ml 11/11/24 19:58 11/11/24 19:59 Iohexol 350 Mg/Ml 100 Ml Infus..Btl IV 11/11/24 19:59 85 ml ONCE ONE Administration Ketorolac Tromethamine 15 mg 11/11/24 20:38 11/11/24 20:59 Ketorolac Tromethamine 15 Mg/Ml Vial IVPUSH 11/11/24 20:39 15 mg ONCE ONE Administration Medical Decision Making Medical Decision Making MDM Narrative: This is a 34-year-old male history of bladder abscess presented hospital today for evaluation of suprapubic pain with fever and tachycardia. Given patient's presentation sepsis alert was called. Vancomycin Zosyn given for broad-spectrum antibiotic coverage. We will repeat CT abdomen and pelvis to evaluate for the abscess and other cause of infection. IV fluid will be provided the patient at this time. IV Tylenol will be given for his fever. UA will be obtained. Review patient's lab work. No sign of leukocytosis, patient's does have left shift in neutrophils. No elevation of lactic acid, patient does have hypomagnesemia at 1.4. Plan to repeat magnesium level. Patient liver enzyme appears to be normal. UA did not show any signs of leuk esterase or UTI. I did review patient's prior admission. He complete a 5 day course of Augmentin. There was concerned that patient may have underlying Crohn's disease with fistula that caused the abscess on the bladder. He was discharged with GI follow up. CT imaging is currently pending at this time with signed out to oncoming provider. Started the patient on IV vancomycin and Zosyn patient is tachycardic is improving. Fever is improving. 11:48 PM 11/11/2024 (Dr. Susan Davenport, D.O.) patient not improving after several L of IV fluid. He is requiring Levophed at this point. We do not have ICU beds at this hospital right now. Discuss case with healthcare economics manager, Dr. Thompson, who recommends transfer. Contacted [facility] without success. They are closed to transfers due to capacity. Case discussed with [facility] transfer line. Patient has been accepted for transfer to [facility] by Dr. Wen, healthcare economics manager. He will be transferred via ALS. Patient understands and agrees with the plan for transfer. Transferred in critical condition. Differential Diagnosis Differential Diagnoses: The differential diagnosis associated with the presentation includes Sepsis, bladder abscess, UTI, pyelonephritis, intra-abdominal infection, appendicitis Consult Healthcare Provider Management of the patient was discussed with: Senior Qc Technician ([employer]ic) Lab Data [facility] Lab Attestation statement: I reviewed the patient's lab results. 11/11/24 22:26 11/11/24 18:34 Labs: Lab Results 11/11/24 11/11/24 11/11/24 Range/Units 18:34 20:42 22:26 WBC 9.8 12.1 H (4.8-10.8) X10*3/uL RBC 4.76 4.27 L (4.60-5.80) X10*6/uL Hgb 13.7 L 12.0 L (14.0-18.0) g/dl Hct 39.8 L 36.2 L (42.0-52.0) % MCV 83.6 84.8 (80.0-98.0) fL MCH 28.8 28.1 (27.0-33.0) pg MCHC 34.4 33.1 (31.0-36.0) g/dl RDW 13.9 14.0 (11.0-16.0) % Plt Count 154 L 153 L (160-400) X10*3/uL MPV 10.6 11.0 (9.4-12.4) fL Immature Gran % (Auto) 0.4 0.6 H (0.0-0.4) % Neut % (Auto) 92.1 H 87.1 H (45-73) % Lymph % (Auto) 2.9 L 5.6 L (20-40) % Teller % (Auto) 4.3 6.1 (2-11) % Eos % (Auto) 0.1 0.4 (0-4) % Baso % (Auto) 0.2 0.2 (0-2) % Lymph # (Auto) 0.3 L 0.7 L (1.2-4.9) X10*3/uL Teller # (Auto) 0.4 0.7 (0.1-1.2) X10*3/uL Eos # (Auto) 0.0 0.1 (0.0-0.4) X10*3/uL Baso # (Auto) 0.0 0.0 (0.0-0.2) X10*3/uL Abs Immat Gran (auto) 0.04 H 0.07 H (0.00-0.03) X10*3/uL Absolute Neuts (auto) 9.0 H 10.5 H (2.0-8.3) x10*3/uL Absolute Nucleated RBC 0.000 0.000 (0.0-0.012) X10*3/uL Nucleated RBC % (auto) 0.0 0.0 (0.0-0.2) /100WBC Smear Tech's Comments VERIFIED Sodium 138 (135-145) mmol/L Potassium 3.4 (3.3-5.1) mmol/L Chloride 101 (96-108) mmol/L Carbon Dioxide 29 (22-29) mmol/L Anion Gap 11 L (12-20) BUN 7 L (9-16) mg/dL Creatinine 0.92 (0.5-1.4) mg/dL Estim Creat Clear Calc 110.4 Estimated GFR > 60 Random Glucose 96 (60-115) mg/dL Lactic Acid 1.1 1.0 (0.5-2.0) mmol/L Calcium 9.0 D (8.4-10.2) mg/dL Magnesium 1.4 L* (1.6-2.6) mg/dL Total Bilirubin 0.4 (0.0-1.0) mg/dL AST 23 (5-37) U/L ALT 16 (0-40) U/L Alkaline Phosphatase 59 (39-117) U/L Total Protein 7.5 (6.5-8.0) g/dL Albumin 4.4 (3.5-5.0) g/dL Urine Color Yellow Urine Appearance Clear Urine pH 7.0 (5.0-9.0) Ur Specific Harleigh 1.010 (1.005-1.025) Urine Protein Negative (Neg-Trace) mg/dL Urine Glucose (UA) Negative (Negative) mg/dL Urine Ketones Negative (Negative) mg/dL Urine Blood Negative (Negative) Urine Nitrite Negative (Negative) Ur Leukocyte Esterase Negative (Negative) COVID-19 (JACQUES) Negative (Negative) COVID-19 Clin Com See Note Influenza Type A (BAM) Negative (Negative) Influenza Type B (BAM) Negative (Negative) Influenza A & B Note See Note 11/11/24 Range/Units 23:13 WBC (4.8-10.8) X10*3/uL RBC (4.60-5.80) X10*6/uL Hgb (14.0-18.0) g/dl Hct (42.0-52.0) % MCV (80.0-98.0) fL MCH (27.0-33.0) pg MCHC (31.0-36.0) g/dl RDW (11.0-16.0) % Plt Count (160-400) X10*3/uL MPV (9.4-12.4) fL Immature Gran % (Auto) (0.0-0.4) % Neut % (Auto) (45-73) % Lymph % (Auto) (20-40) % Teller % (Auto) (2-11) % Eos % (Auto) (0-4) % Baso % (Auto) (0-2) % Lymph # (Auto) (1.2-4.9) X10*3/uL Teller # (Auto) (0.1-1.2) X10*3/uL Eos # (Auto) (0.0-0.4) X10*3/uL Baso # (Auto) (0.0-0.2) X10*3/uL Abs Immat Gran (auto) (0.00-0.03) X10*3/uL Absolute Neuts (auto) (2.0-8.3) x10*3/uL Absolute Nucleated RBC (0.0-0.012) X10*3/uL Nucleated RBC % (auto) (0.0-0.2) /100WBC Smear Tech's Comments Sodium (135-145) mmol/L Potassium (3.3-5.1) mmol/L Chloride (96-108) mmol/L Carbon Dioxide (22-29) mmol/L Anion Gap (12-20) BUN (9-16) mg/dL Creatinine (0.5-1.4) mg/dL Estim Creat Clear Calc Estimated GFR Random Glucose (60-115) mg/dL Lactic Acid (0.5-2.0) mmol/L Calcium (8.4-10.2) mg/dL Magnesium 1.9 (1.6-2.6) mg/dL Total Bilirubin (0.0-1.0) mg/dL AST (5-37) U/L ALT (0-40) U/L Alkaline Phosphatase (39-117) U/L Total Protein (6.5-8.0) g/dL Albumin (3.5-5.0) g/dL Urine Color Urine Appearance Urine pH (5.0-9.0) Ur Specific Harleigh (1.005-1.025) Urine Protein (Neg-Trace) mg/dL Urine Glucose (UA) (Negative) mg/dL Urine Ketones (Negative) mg/dL Urine Blood (Negative) Urine Nitrite (Negative) Ur Leukocyte Esterase (Negative) COVID-19 (JACQUES) (Negative) COVID-19 Clin Com Influenza Type A (BAM) (Negative) Influenza Type B (BAM) (Negative) Influenza A & B Note Independent Interpretation I performed an independent interpretation of an: CT Scan Radiology Impression Discussion of test interpretation with radiology: I have reviewed the radiologist's reading. Radiologist Impression: CT abdomen and pelvis with contrast Comparison: CT/SR - CT ABDOMEN PELVIS W IV CON - 09/09/24 18:54 EDT Findings: LIMITED CHEST: Lung bases are clear. LIVER: No focal liver lesion. BILIARY: No gallbladder wall thickening, radiopaque stone, or ductal dilatation. PANCREAS: No mass or ductal dilatation. SPLEEN: No splenomegaly. KIDNEYS: No hydronephrosis or radiopaque stone. ADRENALS: No nodule. VASCULAR: No aneurysm. RETROPERITONEUM: No lymphadenopathy or mass. BOWEL/MESENTERY: There is significant inflammatory stranding in the right lower quadrant with multiple loops of thickened sigmoid colon. There is appearance of close association with the terminal ileum (series 8, image 65). No free air. Small volume ascites. ABDOMINAL WALL: No mass or significant abnormality. URINARY BLADDER: Focal thickening of the superior bladder dome. PELVIC NODES: No pelvic lymphadenopathy. PELVIC ORGANS: Normal for age. BONES: No acute fracture. OTHER: Negative. IMPRESSION: Inflammatory stranding and bowel wall thickening of the sigmoid colon in the right lower quadrant may represent active infectious or inflammatory colitis. There is close association with the adjacent terminal ileum, and ileocolonic fistula is not excluded if there is a clinical history of inflammatory bowel disease. Suspect reactive thickening of the bladder dome. No measurable fluid collection. This document has been electronically signed by: Donna Soler MD on 11/11/2024 21:13:21 External Record Review External record reviewed: Inpatient record and Prior outpatient radiology Social Determinants Patient?s care significantly limited by Social Determinants of Health including: Problems related to primary support group and Other Social Determinant of Health Critical Care Time Critical Care Time Critical Care Time: Yes Total Critical Care Time: 40 Attestation: Time is exclusive of separately billable procedures. Time includes: direct patient care, patient reassessment, coordination of patient care, interpretation of data (laboratory data, pulse oximetry, arterial blood gases and chest xrays), review of patient's medical records, medical consultation and documentation of patient care. Procedures excluded from critical care time: central intravenous line placement and electrocardiography. Discharge Plan Discharge Clinical Impression: Abdominal pain with vomiting, Septic shock, Infectious colitis Patient Disposition: [facility] Transfer Details: [facility] [address] (ICU), Dr. Wen (healthcare economics manager) accepting Prescriptions: No Action acetaminophen 500 mg Tablet 1,000 mg PO Q6H PRN (Reason: Pain) melatonin 10 mg Tablet 10 mg PO BEDTIME PRN (Reason: Sleep) Print Language: Albanian
[2024-11-11 18:44] LABS: Hematocrit 39.8 % (42.0-52.0); Hemoglobin 13.7 g/dl (14.0-18.0); Imm Gran Abs Auto 0.04 X10*3/uL (0.00-0.03); Imm Gran Pct Auto 0.4 % (0.0-0.4); Lymphocytes Absolute Auto 0.3 X10*3/uL (1.2-4.9); MANUAL DIFF FLAG SCAN; Mean Corpuscular HGB Conc 34.4 g/dl (31.0-36.0); Mean Corpuscular Hemoglobin 28.8 pg (27.0-33.0); Mean Corpuscular Volume 83.6 fL (80.0-98.0); NRBC Abs Auto 0.000 X10*3/uL (0.0-0.012); NRBC Pct Auto 0.0 /100WBC (0.0-0.2); Platelet Count 154 X10*3/uL (160-400); Red Blood Count 4.76 X10*6/uL (4.60-5.80); SCAN SMEAR FLAG 1; White Blood Count 9.8 X10*3/uL (4.8-10.8)
[2024-11-11 19:04] LABS: Alanine Aminotransferase 16 U/L (0-40); Albumin Level 4.4 g/dL (3.5-5.0); Alkaline Phosphatase 59 U/L (39-117); Anion Gap 11 (12-20); Aspartate Amino Transferase 23 U/L (5-37); Blood Urea Nitrogen 7 mg/dL (9-16); Calcium 9.0 mg/dL (8.4-10.2); Carbon Dioxide 29 mmol/L (22-29); Chloride 101 mmol/L (96-108); Creatinine Clr Calc Pharmacy 110.4; Estimated Glomerular Filt Rate > 60; Magnesium 1.4 mg/dL (1.6-2.6); Potassium 3.4 mmol/L (3.3-5.1); Sodium 138 mmol/L (135-145); Total Protein 7.5 g/dL (6.5-8.0)
[2024-11-11] MEDS: vancomycin/NS 2,000 MG/500 ML PLAST..BAG 250 MG IV (19:34)
[2024-11-11] MEDS: iohexoL 350 MG/ML 100 ML INFUS..BTL 85 ML IV (19:59)
[2024-11-11] MEDS: Magnesium Sulfate/H2O 2 GM/50 ML PIGGYBACK IV (20:05)
[2024-11-11 20:50] LABS: Appearance Urine Clear; Glucose Urine UA Negative (Negative); PH 7.0 (5.0-9.0); Specific Gravity - Urine 1.010 (1.005-1.025)
[2024-11-11] MEDS: Lactated Ringers 1,000 ML 999 ML IV (21:22)
[2024-11-11] MEDS: Hydrocortisone Sod Succ/PF 100 MG VIAL IVPUSH (22:07)
[2024-11-11 22:36] LABS: Hematocrit 36.2 % (42.0-52.0); Hemoglobin 12.0 g/dl (14.0-18.0); Imm Gran Abs Auto 0.07 X10*3/uL (0.00-0.03); Imm Gran Pct Auto 0.6 % (0.0-0.4); Lymphocytes Absolute Auto 0.7 X10*3/uL (1.2-4.9); MANUAL DIFF FLAG NO; Mean Corpuscular HGB Conc 33.1 g/dl (31.0-36.0); Mean Corpuscular Hemoglobin 28.1 pg (27.0-33.0); Mean Corpuscular Volume 84.8 fL (80.0-98.0); NRBC Abs Auto 0.000 X10*3/uL (0.0-0.012); NRBC Pct Auto 0.0 /100WBC (0.0-0.2); Platelet Count 153 X10*3/uL (160-400); Red Blood Count 4.27 X10*6/uL (4.60-5.80); White Blood Count 12.1 X10*3/uL (4.8-10.8)
[2024-11-11 22:54] LABS: COVID-19 Test Negative (Negative); IDNOW Serial# 55D5AD1C; IDNOW Serial# 58CA691E; Influenza B2 Negative (Negative)
--- NOTE | 2024-11-11 23:14 | PC.NURSE ---
Took over care from NORRIS Bolden, pt bp low, Notified Dr. Moseley, Norepinephrine started.
[2024-11-11 23:34] LABS: Magnesium 1.9 mg/dL (1.6-2.6)
--- NOTE | 2024-11-11 23:52 | PC.NURSE ---
Addendum entered by Rosa Greer RN 11/14/24 05:58: Total of 8.79 ml given before transfer. Original Note: Call ICU spoke to Nigel, report given, bp has improved.
== END 2024-11-12 00:21 | disposition short-term general hospital (02) ==
PROVIDERS: Physician Assistant Medical; Student in an Organized Health Care Education/Training Program; Emergency Provider Emergency Medicine; PCP Physician Assistant Medical
DX: A09 Infectious gastroenteritis and colitis, unspecified (principal); R65.21 Severe sepsis with septic shock; R00.0 Tachycardia, unspecified; R10.24 Suprapubic pain; R11.10 Vomiting, unspecified; Z03.818 Encounter for observation for suspected exposure to other biological agents ruled out
CPT/HCPCS: 36415; 74177; 80053; 81003; 83605; 83735; 85025; 87040; 87502; 87635; 96361; 96365; 96366; 96367; 96375; 99285; 99291; J0131; J0696; J1720; J1885; J2543; J3373; J3475; J7120; Q9967

== ENCOUNTER → 2024-11-11 18:31 | Outpatient (BNV) | payer OTHER, SELFPAY | PROVIDERS: Emergency Provider Student in an Organized Health Care Education/Training Program; PCP Physician Assistant Medical; Visit Provider Student in an Organized Health Care Education/Training Program | DX: K63.89 Other specified diseases of intestine (principal) | CPT/HCPCS: 74177 ==